=== PATIENT | female | born 1960 | race Caucasian/White ===

== ENCOUNTER 2020-04-12 06:24 | Emergency (ER) | payer OTHER ==
[2020-04-12] MEDS ORDERED: SODIUM CHLORIDE 0.9% 1,000 ML IV STA ×2 (06:48)
[2020-04-12] MEDS ORDERED: HYDROmorphone 1 MG/ML 1 ML SYRINGE IVP STA (06:48)
[2020-04-12] MEDS ORDERED: ONDANSETRON 4 MG/2 ML VIAL IVP STA (06:48)
[2020-04-12] MEDS ORDERED: PANTOPRAZOLE 40 MG/10 ML VIAL IVP STA (06:48)
--- NOTE | 2020-04-12 06:54 | ED ---
Abdominal Pain HPI - General Chief Complaint: Abdominal Pain Stated Complaint: Abd Pain Time Seen by Provider: 04/12/20 06:37 Source: patient, RN notes reviewed, old records reviewed Mode of arrival: ambulatory Limitations: no limitations - History of Present Illness Initial Comments: Patient is a 59-year-old female who presents emergency department today for evaluation for epigastric and left upper quadrant abdominal pain. She reports she's been having intermittent pain for the past 2 weeks which is been trying to manage for concerns for pancreatitis for the past 2 weeks by eating small amounts and taking her at home pain medication. She reports the pain seem to reoccur last night becoming more severe. She complains of nausea. She reports some loose stools. Patient states that she has had no fevers or chills. She is extensive history of pancreatitis and has had multiple stents placed at [facility]. Patient states that she's had no fevers or chills. - Related Data Previous Rx's Medication Instructions Recorded Sucralfate [Carafate] 1 gm PO ACHS #30 tablet 04/12/20 Allergies Allergy/AdvReac Type Severity Reaction Status Date / Time Iodinated Contrast Media Allergy Nausea & Verified 04/12/20 06:34 Vomiting codeine AdvReac Nausea & Verified 04/12/20 06:33 Vomiting Review of Systems ROS Statement: Those systems with pertinent positive or pertinent negative responses have been documented in the HPI. ROS Other: All systems not noted in ROS Statement are negative. Past Medical History Additional Past Medical History / Comment(s): pancreatitis, stent placed in pancreas then removed. History of Any Multi-Drug Resistant Organisms: None Reported Past Surgical History: Section, Cholecystectomy Past Psychological History: No Psychological Hx Reported Smoking Status: Current every day smoker Past Alcohol Use History: Occasional Past Drug Use History: None Reported General Exam - General Exam Comments Initial Comments: 59-year-old female. Alert and oriented. No distress. Limitations: no limitations General appearance: alert, in no apparent distress Head exam: Present: atraumatic Eye exam: Present: normal appearance, PERRL, EOMI. Absent: scleral icterus, conjunctival injection, periorbital swelling ENT exam: Present: normal exam, mucous membranes moist Neck exam: Present: normal inspection. Absent: tenderness, meningismus, lymphadenopathy Respiratory exam: Present: normal lung sounds bilaterally. Absent: respiratory distress, wheezes, rales, rhonchi, stridor Cardiovascular Exam: Present: regular rate, normal rhythm, normal heart sounds. Absent: systolic murmur, diastolic murmur, rubs, gallop, clicks GI/Abdominal exam: Present: soft, tenderness (Epigastric tenderness.), normal bowel sounds. Absent: distended, guarding, rebound, rigid Extremities exam: Present: normal inspection, full ROM, normal capillary refill. Absent: tenderness, pedal edema, joint swelling, calf tenderness Back exam: Present: normal inspection Neurological exam: Present: alert, oriented X3, CN II-XII intact Psychiatric exam: Present: normal affect, normal mood Skin exam: Present: warm, dry, intact, normal color. Absent: rash Course Vital Signs 04/12/20 06:28 Temperature 97.9 F Pulse Rate 75 Respiratory 18 Rate Blood Pressure 151/83 O2 Sat by Pulse 100 Oximetry - Reevaluation(s) Reevaluation #1: 04/12/20 08:46 Patient was reevaluated and resting comfortably in bed. She reports her pain is now diminished. Medical Decision Making - Medical Decision Making Patient's 59-year-old female presents weren't started today for upper abdominal pain, concern for recurrent pancreatitis. Patient is given IV fluids labwork obtained. Amylase and lipase are slightly elevated but no signs of severe pancreatitis at this time. Patient's CBC and CMP were otherwise unremarkable. Patient was given IV fluids and IV analgesics and is resting comfortably in bed. She does report the pain is otherwise worse after eating. Discussed concern for possible gastritis or duodenal ulcer. Patient does take Protonix daily. I discussed continue Protonix and will add Carafate to patient's regimen. Discussed dietary changes including coffee intake needs to decrease as well as to discontinue smoking. Patient understands treatment plan will comply. Return parameters were discussed. Discussed following up with her primary care physician as well as with as well as her specialist at [facility] for GI follow up. - Lab Data Result diagrams: 04/12/20 07:02 04/12/20 07:18 Lab Results 04/12/20 04/12/20 04/12/20 Range/Units 07:02 07:18 07:18 WBC 10.1 (3.8-10.6) k/uL RBC 4.77 (3.80-5.40) m/uL Hgb 13.3 (11.4-16.0) gm/dL Hct 39.8 (34.0-46.0) % MCV 83.4 (80.0-100.0) fL MCH 27.8 (25.0-35.0) pg MCHC 33.4 (31.0-37.0) g/dL RDW 14.4 (11.5-15.5) % Plt Count 333 (150-450) k/uL Neutrophils % 71 % Lymphocytes % 19 % Monocytes % 5 % Eosinophils % 3 % Basophils % 1 % Neutrophils # 7.2 (1.3-7.7) k/uL Lymphocytes # 1.9 (1.0-4.8) k/uL Monocytes # 0.5 (0-1.0) k/uL Eosinophils # 0.3 (0-0.7) k/uL Basophils # 0.1 (0-0.2) k/uL PT 9.7 (9.0-12.0) sec INR 0.9 (<1.2) APTT 23.7 (22.0-30.0) sec Sodium 139 (137-145) mmol/L Potassium 4.1 (3.5-5.1) mmol/L Chloride 108 H (98-107) mmol/L Carbon Dioxide 20 L (22-30) mmol/L Anion Gap 11 mmol/L BUN 11 (7-17) mg/dL Creatinine 0.58 (0.52-1.04) mg/dL Est GFR (CKD-EPI)AfAm >90 (>60 ml/min/1.73 sqM) Est GFR (CKD-EPI)NonAf >90 (>60 ml/min/1.73 sqM) Glucose 164 H (74-99) mg/dL Calcium 9.7 (8.4-10.2) mg/dL Magnesium 2.0 (1.6-2.3) mg/dL Total Bilirubin 0.3 (0.2-1.3) mg/dL AST 16 (14-36) U/L ALT 16 (4-34) U/L Alkaline Phosphatase 111 (38-126) U/L Total Protein 7.1 (6.3-8.2) g/dL Albumin 4.0 (3.5-5.0) g/dL Amylase 115 H (30-110) U/L Lipase 366 H (23-300) U/L 04/12/20 07:25 EKG shows normal sinus rhythm normal EKG. Ventricular rate of 67 bpm. Was 126 ms. She quaker is 86 ms. QT QTc is 404/426 most seconds. - Radiology Data Radiology results: report reviewed Chest x-ray is negative for any acute intra-abdominal abnormality. Disposition Clinical Impression: Upper abdominal pain, Gastritis Disposition: HOME SELF-CARE Condition: Good Instructions (If sedation given, give patient instructions): Abdominal Pain (ED), Diet for Stomach Ulcers and Gastritis (ED) Additional Instructions: Patient advised to monitor her diet and avoid any acidic foods and caffeine intake. Recommended appropriate follow-up with primary care physician and GI specialist at [facility]. Patient should increase fluid intake. Monitor for any other concerning signs or symptoms she can return for reevaluation. Prescriptions: Sucralfate [Carafate] 1 gm PO ACHS #30 tablet Is patient prescribed a controlled substance at d/c from ED?: No Referrals: Andrews Tomlinson DO [Primary Care Provider] - 1-2 days Time of Disposition: 08:50
[2020-04-12 07:41] LABS: ALT 16 U/L (4-34); AST 16 U/L (14-36); African American GFR (CKD) >90 (>60 ml/min/1.73 sqM); Alkaline Phosphatase 111 U/L (38-126); Amylase 115 U/L (30-110); Anion Gap 11 mmol/L; Blood Urea Nitrogen 11 mg/dL (7-17); Calcium 9.7 mg/dL (8.4-10.2); Carbon Dioxide 20 mmol/L (22-30); Chloride 108 mmol/L (98-107); Glucose 164 mg/dL (74-99); Non-African American GFR(CKD) >90 (>60 ml/min/1.73 sqM); Potassium 4.1 mmol/L (3.5-5.1); Sodium 139 mmol/L (137-145); Total Bilirubin 0.3 mg/dL (0.2-1.3); Total Protein 7.1 g/dL (6.3-8.2)
--- NOTE | 2020-04-12 07:46 | XR ---
EXAMINATION TYPE: XR KUB , 2 VIEWS DATE OF EXAM ORDERED: 04/12/2020 HISTORY: abdominal pain. COMPARISON: None. FINDINGS: The lung bases are clear. Within the abdomen, the abdominal gas pattern is normal. There is no evidence of obstruction or free air. No unusual calcifications are seen. The gallbladder has been removed. IMPRESSION: NO ACUTE INTRA-ABDOMINAL ABNORMALITY.
[2020-04-12 07:48] LABS: Basophils # (A) 0.1 k/uL (0-0.2); Basophils % (A) 1 %; Eosinophils # (A) 0.3 k/uL (0-0.7); Eosinophils % (A) 3 %; HCT 39.8 % (34.0-46.0); HGB 13.3 gm/dL (11.4-16.0); Lymphocytes # (A) 1.9 k/uL (1.0-4.8); Lymphocytes % (A) 19 %; MCH 27.8 pg (25.0-35.0); MCHC 33.4 g/dL (31.0-37.0); MCV 83.4 fL (80.0-100.0); Mean Platelet Volume 7.7; Monocytes # (A) 0.5 k/uL (0-1.0); Monocytes % (A) 5 %; Neutrophils # (A) 7.2 k/uL (1.3-7.7); Neutrophils % (A) 71 %; Platelet Count 333 k/uL (150-450); RBC 4.77 m/uL (3.80-5.40); RDW 14.4 % (11.5-15.5); WBC 10.1 k/uL (3.8-10.6)
[2020-04-12 07:54] LABS: INR 0.9 (<1.2); Partial Thromboplastin Time 23.7 sec (22.0-30.0); Prothrombin Time 9.7 sec (9.0-12.0)
[2020-04-12 09:15] VITALS: BP 106/74; PULSE 66; RESP 16; TEMP 98
[2020-04-12 09:50] LABS: Appearance,Urine Cloudy (Clear); Bacteria,Urine Occasional /hpf; Bilirubin,Urine Negative (Negative); Blood,Urine Trace (Negative); Color,Urine Yellow; Glucose,Urine (UA) Negative (Negative); Ketones,Urine Negative (Negative); Leukocyte Esterase,Urine Large (Negative); Mucus,Urine Few /hpf; Nitrite,Urine Negative (Negative); PH, Urine 5.5 (5.0-8.0); Protein,Urine Trace (Negative); RBC,Urine 2 /hpf (0-5); Specific Gravity,Urine 1.024 (1.001-1.035); Squamous Epithelial Cell,Urine 8 /hpf (0-4); Urobilinogen,Urine <2.0 mg/dL (<2.0); WBC,Urine 26 /hpf (0-5)
== END 2020-04-12 10:05 | disposition home or self-care (01) ==
LOC: EC 06:24
DX: K29.70 Gastritis, unspecified, without bleeding (principal); Z88.5 Allergy status to narcotic agent; Z91.041 Radiographic dye allergy status; F17.200 Nicotine dependence, unspecified, uncomplicated
CPT/HCPCS: 36415; 93005; 80053; 82150; 83690; 83735; 85025; 85610; 85730; 81001; 87086; 74018; 99284; 96374; 96375 ×2; 96361; J2405; J1170; C9113

== ENCOUNTER → 2021-03-04 | Outpatient (CLI) | payer BC ==
[2021-03-04 14:54] LABS: INR 0.9 (<1.2); Partial Thromboplastin Time 22.1 sec (22.0-30.0)
[2021-03-04 18:36] LABS: HCT 36.3 % (37.2-46.3); HGB 11.1 g/dL (12.0-15.0); MCH 24.7 pg (27.0-32.0); MCHC 30.6 g/dL (32.0-37.0); MCV 80.7 fL (80.0-97.0); Mean Platelet Volume 9.8 fL (9.5-12.2); Platelet Count 307 X 10*3/uL (140-440); RDW 14.6 % (11.5-14.5)
[2021-03-04 19:08] LABS: African American GFR (CKD) 92.9 (60.0-200.0); Albumin 4.8 g/dL (3.80-4.90); Albumin/Globulin Ratio 1.85 (1.60-3.17); Anion Gap 8.2 mmol/L (4.00-12.00); Calcium 10.2 mg/dL (8.7-10.3); Carbon Dioxide 24.8 mmol/L (21.6-31.8); Globulin 2.6 g/dL (1.6-3.3); Non-African American GFR(CKD) 80.1 (60.0-200.0); Potassium 4.6 mmol/L (3.5-5.5); Total Bilirubin 0.6 mg/dL (0.3-1.2); Total Protein 7.4 g/dL (6.2-8.2)
== END | disposition home or self-care (01) ==
LOC: LABWHC1 13:46
PROVIDERS: ATTEND Physician Assistant Medical
DX: Z01.812 Encounter for preprocedural laboratory examination (principal); K86.3 Pseudocyst of pancreas
CPT/HCPCS: 36415; 80053; 83036; 84134; 85027; 85610; 85730; 86850; 86900; 86901

== ENCOUNTER 2021-04-15 12:26 | Observation (INO) | payer BC ==
[2021-04-15] MEDS ORDERED: diphenhydrAMINE 50 MG/ML 1 ML VIAL IVP STA (12:41)
[2021-04-15] MEDS ORDERED: methylPREDNISolone SOD SUCCI 125 MG/2 ML VIAL IV STA (12:41)
[2021-04-15] MEDS ORDERED: FAMOTIDINE 20 MG/2 ML VIAL IV STA (12:41)
--- NOTE | 2021-04-15 12:42 | ED ---
General Adult HPI - General Chief complaint: Allergic Reaction Stated complaint: tongue swelling Time Seen by Provider: 04/15/21 12:36 Source: patient, RN notes reviewed Mode of arrival: ambulatory Limitations: no limitations - History of Present Illness Initial comments: Patient is a pleasant 60-year-old female presenting to the emergency department with complaints of tongue swelling. Onset of symptoms was around 9 or 10 this morning. Symptoms did start shortly after taking her diabetes medication that he she is only been on for a few days. Patient is also on lisinopril however she has been on that for many months now. Patient also has some mild swelling of the back of her throat. No dyspnea. Patient does not feel wheezy or tightness in her chest. No facial swelling. No history of similar symptoms previously. No other new known exposures. - Related Data Home Medications Medication Instructions Recorded Confirmed Aspirin EC [Ecotrin Low Dose] 81 mg PO DAILY 04/15/21 04/15/21 Docusate [Colace] 100 mg PO DAILY 04/15/21 04/15/21 Empagliflozin [Jardiance] 25 mg PO DAILY 04/15/21 04/15/21 Lipase/Protease/Amylase [Creon Dr 36,000 units PO QID 04/15/21 04/15/21 36,000 Units Capsule] Metoprolol Tartrate [Lopressor] 25 mg PO BID 04/15/21 04/15/21 Pantoprazole Sodium [Protonix] 40 mg PO DAILY 04/15/21 04/15/21 Repaglinide [Prandin] 1 mg PO AC-BID 04/15/21 04/15/21 Rosuvastatin Calcium [Crestor] 40 mg PO HS 04/15/21 04/15/21 Ticagrelor [Brilinta] 90 mg PO BID 04/15/21 04/15/21 diphenhydrAMINE [Benadryl] 50 mg PO ONCE PRN 04/15/21 04/15/21 lisinopriL [Zestril] 5 mg PO DAILY 04/15/21 04/15/21 sitaGLIPtin [Januvia] 100 mg PO HS 04/15/21 04/15/21 Allergies Allergy/AdvReac Type Severity Reaction Status Date / Time Iodinated Contrast Media Allergy Nausea & Verified 04/15/21 13:24 Vomiting Sulfa (Sulfonamide Allergy Rash/Hives Verified 04/15/21 13:24 Antibiotics) codeine AdvReac Nausea & Verified 04/15/21 13:24 Vomiting Review of Systems ROS Statement: Those systems with pertinent positive or pertinent negative responses have been documented in the HPI. ROS Other: All systems not noted in ROS Statement are negative. Constitutional: Denies: fever Eyes: Denies: eye pain ENT: Reports: as per HPI. Denies: ear pain Respiratory: Denies: cough, dyspnea Cardiovascular: Denies: chest pain Endocrine: Denies: fatigue Gastrointestinal: Denies: abdominal pain Genitourinary: Denies: dysuria Musculoskeletal: Denies: back pain Skin: Denies: lesions Neurological: Denies: headache Past Medical History Past Medical History: Diabetes Mellitus, Hypertension Additional Past Medical History / Comment(s): pancreatitis, stent placed in pancreas then removed. History of Any Multi-Drug Resistant Organisms: None Reported Past Surgical History: Section, Cholecystectomy Past Psychological History: No Psychological Hx Reported Smoking Status: Never smoker Past Alcohol Use History: Occasional Past Drug Use History: None Reported General Exam Limitations: no limitations General appearance: alert, in no apparent distress Head exam: Present: normocephalic Eye exam: Present: normal appearance ENT exam: Present: other (Angioedema, mild to moderate of the tongue. Minimal angioedema of the uvula.) Neck exam: Present: normal inspection Respiratory exam: Present: normal lung sounds bilaterally. Absent: respiratory distress, wheezes Cardiovascular Exam: Present: regular rate, normal rhythm GI/Abdominal exam: Present: soft. Absent: tenderness Extremities exam: Present: normal inspection. Absent: pedal edema, calf tenderness Neurological exam: Present: alert Psychiatric exam: Present: normal affect, normal mood Skin exam: Present: normal color Course Vital Signs 04/15/21 04/15/21 12:28 13:36 Temperature 97.5 F L Pulse Rate 90 84 Respiratory 20 18 Rate Blood Pressure 141/58 127/66 O2 Sat by Pulse 99 98 Oximetry Medical Decision Making - Medical Decision Making Patient reevaluated and unchanged. Patient and family updated. Case discussed with Dr. Mtz, covering hospital call, who will admit. Disposition Clinical Impression: Angioedema Disposition: ADMITTED IP TO THIS HOSP Is patient prescribed a controlled substance at d/c from ED?: No Referrals: Andrews Tomlinson DO [Primary Care Provider] - 1-2 days Decision Time: 14:19
[2021-04-15] MEDS ORDERED: NALOXONE 0.4 MG/ML 1 ML VIAL IV PRN (14:20)
[2021-04-15] MEDS ORDERED: SODIUM CHLORIDE 0.9% 1,000 ML IV SCH (14:30)
[2021-04-15] MEDS: HEPARIN SODIUM,PORCINE/PF 5,000 UNIT/0.5 ML SYRINGE SQ SCH ×2 (16:40→21:01)
[2021-04-15 16:57] LABS: Glucose,Whole Blood 189 mg/dL (75-99)
[2021-04-15] MEDS: LIPASE 5,000/PROTEASE 17,000/AMYLASE 24,000 PO SCH ×2 (17:22→20:42)
[2021-04-15] MEDS: REPAGLINIDE 1 MG TAB PO SCH (17:24)
[2021-04-15] MEDS: diphenhydrAMINE 50 MG/ML 1 ML VIAL IVP PRN ×2 (17:25→22:59)
[2021-04-15] MEDS: methylPREDNISolone SOD SUCCI 125 MG/2 ML VIAL IV SCH ×2 (17:25→23:13)
[2021-04-15 20:17] LABS: Glucose,Whole Blood 336 mg/dL (75-99)
--- NOTE | 2021-04-15 20:37 | P.HPIM ---
History of Present Illness H&P Date: 04/15/21 Patient is a 60-year-old female with a long history of hypertension, diabetes type 2 [id number], history of NE in August 2020 with stent placement, CAD,, pancreatic tumor resection on March 23, 2021 presents to ER with complaints of tongue swelling. Patient states that she had breakfast in the morning and took all her medications. She suddenly started having tongue swelling and fullness in the throat. Denied any lip swelling. No complaints of shortness of breath or chest pain. Also had swelling of the back of her throat. Patient presented to ER due to worsening symptoms. No facial swelling or rash. Patient has been taking lisinopril since August 2020 and also recently started new diabetic medication, empagliflozin. Laboratory data showed blood sugar 189 and 336. Patient was given a dose of Benadryl, methylprednisolone and IV Pepcid in the ER. Review of Systems Constitutional: Patient denies any fever or chills . No generalized weakness or weight loss. Abdomen: Patient denied nausea vomiting and diarrhea and abdominal pain. Cardiovascular: Patient denies any chest pain or short of breath no palpitations. Respiratory: patient denied any cough is from production. No shortness of breath Neurologic: Patient denied any numbness or tingling headache. tongue swelling Musculoskeletal: Patient denies any complaints of joint swelling or deformity. Skin: Negative Psychiatric: Negative Endocrine: No heat or cold intolerance. No recent weight gain. Genitourinary: No dysuria or hematuria. All other 14 point ROS negative except the above Past Medical History Past Medical History: Diabetes Mellitus, Hypertension Additional Past Medical History / Comment(s): pancreatitis, stent placed in pancreas then removed. History of Any Multi-Drug Resistant Organisms: None Reported Past Surgical History: Section, Cholecystectomy Past Psychological History: No Psychological Hx Reported Smoking Status: Never smoker Past Alcohol Use History: Occasional Past Drug Use History: None Reported Medications and Allergies Home Medications Medication Instructions Recorded Confirmed Type Aspirin EC [Ecotrin Low Dose] 81 mg PO DAILY 04/15/21 04/15/21 History Docusate [Colace] 100 mg PO DAILY 04/15/21 04/15/21 History Empagliflozin [Jardiance] 25 mg PO DAILY 04/15/21 04/15/21 History Lipase/Protease/Amylase [Royce Jaffe 36,000 units PO QID 04/15/21 04/15/21 History 36,000 Units Capsule] Metoprolol Tartrate [Lopressor] 25 mg PO BID 04/15/21 04/15/21 History Pantoprazole Sodium [Protonix] 40 mg PO DAILY 04/15/21 04/15/21 History Repaglinide [Prandin] 1 mg PO AC-BID 04/15/21 04/15/21 History Rosuvastatin Calcium [Crestor] 40 mg PO HS 04/15/21 04/15/21 History Ticagrelor [Brilinta] 90 mg PO BID 04/15/21 04/15/21 History diphenhydrAMINE [Benadryl] 50 mg PO ONCE PRN 04/15/21 04/15/21 History lisinopriL [Zestril] 5 mg PO DAILY 04/15/21 04/15/21 History sitaGLIPtin [Januvia] 100 mg PO HS 04/15/21 04/15/21 History Allergies Allergy/AdvReac Type Severity Reaction Status Date / Time Iodinated Contrast Media Allergy Nausea & Verified 04/15/21 13:24 Vomiting Sulfa (Sulfonamide Allergy Rash/Hives Verified 04/15/21 13:24 Antibiotics) codeine AdvReac Nausea & Verified 04/15/21 13:24 Vomiting Physical Exam Vitals: Vital Signs Temp Pulse Resp BP Pulse Ox 04/15/21 16:18 90 18 126/78 98 04/15/21 14:38 90 16 123/88 94 L 04/15/21 13:36 84 18 127/66 98 04/15/21 12:28 97.5 F L 90 20 141/58 99 Intake and Output 04/15/21 04/15/21 04/15/21 06:59 14:59 22:59 Other: Weight 79.379 kg PHYSICAL EXAMINATION: Patient is lying in the bed comfortably, no acute distress, awake alert and oriented.. HEENT: Normocephalic. Neck is supple. Pupils reactive. Nostrils clear. Oral cavity is moist. Patient does swelling and redness of the tongue. Especially on the sides. No pharyngeal erythema. Neck reveals no JVD, carotid bruits, or thyromegaly. CHEST EXAMINATION: Trachea is central. Symmetrical expansion. Lung anderson clear to auscultation and percussion. CARDIAC: Normal S1, S2 with no gallops. No murmurs ABDOMEN: Soft. Bowel sounds normal. No organomegaly. No abdominal bruits. Extremities: reveal no edema. No clubbing or cyanosis Neurologically awake, alert, oriented x3 with well-coordinated movements. No focal deficits noted Skin: No rash or skin lesions. Psychiatric: Coperative. Nonsuicidal Musculoskeletal: No joint swelling or deformity. Normal range of motion. Thrombosis Risk Factor Assmnt - DVT/VTE Prophylaxis DVT/VTE Prophylaxis: Pharmacologic Prophylaxis ordered Assessment and Plan Assessment: Acute allergic reaction with tongue swelling. Patient is lisinopril and recent change in diabetic medications. Hyperglycemia with uncontrolled diabetes type 2 Recent pancreatic stent placement on March 23, 2021 History of NE Coronary artery disease with history of stent placement in August 2020 History of pancreatitis DVT prophylaxis with heparin subcu Plan: Patient will be continued IV methylprednisolone, IV Pepcid and Benadryl as needed for allergic symptoms. Continue to monitor closely for any respiratory distress. Continue with home medication including aspirin, Brilinta and statins and metoprolol. Follow-up closely. Continue with home diabetic medications along with insulin sliding scale and titrate dose as needed. Follow-up A1c level. Time with Patient: Greater than 30
[2021-04-15] MEDS: METOPROLOL TARTRATE 25 MG TAB PO SCH (20:38)
[2021-04-15] MEDS: FAMOTIDINE 20 MG/2 ML VIAL IV SCH (20:39)
[2021-04-15] MEDS: INSULIN ASPART (NovoLOG) 100 UNIT/ML VIAL SQ SCH (20:50)
[2021-04-15] MEDS: TICAGRELOR 90 MG TAB PO SCH (20:54)
[2021-04-15] MEDS ORDERED: ATORVASTATIN 80 MG TAB PO SCH (21:00)
[2021-04-15] MEDS ORDERED: LINAGLIPTIN 5 MG TABLET PO SCH (21:00)
[2021-04-15 21:30] LABS: Basophils % (A) 0 %; Eosinophils % (A) 0 %; HCT 31.4 % (34.0-46.0); HGB 9.4 gm/dL (11.4-16.0); Hypochromasia Marked; Lymphocytes # (A) 0.8 k/uL (1.0-4.8); Lymphocytes % (A) 9 %; MCH 23.1 pg (25.0-35.0); MCHC 30.1 g/dL (31.0-37.0); MCV 76.9 fL (80.0-100.0); Mean Platelet Volume 6.6; Microcytosis Slight; Monocytes # (A) 0.1 k/uL (0-1.0); Monocytes % (A) 1 %; Neutrophils # (A) 8.1 k/uL (1.3-7.7); Neutrophils % (A) 90 %; Platelet Count 464 k/uL (150-450); Poikilocytosis Slight; RBC 4.08 m/uL (3.80-5.40); RDW 15.2 % (11.5-15.5); WBC 8.9 k/uL (3.8-10.6)
[2021-04-15 21:48] LABS: African American GFR (CKD) >90 (>60 ml/min/1.73 sqM); Anion Gap 17 mmol/L; Blood Urea Nitrogen 23 mg/dL (7-17); Calcium 10.6 mg/dL (8.4-10.2); Carbon Dioxide 18 mmol/L (22-30); Chloride 103 mmol/L (98-107); Glucose 316 mg/dL (74-99); Non-African American GFR(CKD) 87 (>60 ml/min/1.73 sqM); Potassium 4.6 mmol/L (3.5-5.1); Sodium 138 mmol/L (137-145)
[2021-04-15] MEDS ORDERED: guaiFENesin 600 MG TABLET.ER PO PRN (23:39)
[2021-04-16] MEDS: methylPREDNISolone SOD SUCCI 125 MG/2 ML VIAL IV SCH ×2 (05:08→12:28)
[2021-04-16 05:37] LABS: Hemoglobin A1C 6.3 % (4.0-6.0)
[2021-04-16 07:13] LABS: Glucose,Whole Blood 208 mg/dL (75-99)
[2021-04-16 07:36] VITALS: PULSE 91
[2021-04-16] MEDS: HEPARIN SODIUM,PORCINE/PF 5,000 UNIT/0.5 ML SYRINGE SQ SCH (08:01)
[2021-04-16] MEDS: REPAGLINIDE 1 MG TAB PO SCH (08:01)
[2021-04-16] MEDS: FAMOTIDINE 20 MG/2 ML VIAL IV SCH (08:02)
[2021-04-16] MEDS: METOPROLOL TARTRATE 25 MG TAB PO SCH (08:02)
[2021-04-16] MEDS: TICAGRELOR 90 MG TAB PO SCH (08:03)
[2021-04-16] MEDS: LIPASE 5,000/PROTEASE 17,000/AMYLASE 24,000 PO SCH ×2 (08:04→12:28)
[2021-04-16] MEDS: INSULIN ASPART (NovoLOG) 100 UNIT/ML VIAL SQ SCH ×2 (08:04→12:28)
[2021-04-16] MEDS ORDERED: DOCUSATE 100 MG CAP PO SCH (09:00)
[2021-04-16] MEDS ORDERED: PANTOPRAZOLE 40 MG TABLET PO SCH (09:00)
[2021-04-16] MEDS ORDERED: ASPIRIN 81 MG PO SCH (09:00)
[2021-04-16] MEDS ORDERED: Empagliflozin [Jardiance] PO SCH (09:30)
[2021-04-16 12:08] LABS: Glucose,Whole Blood 238 mg/dL (75-99)
[2021-04-16 14:41] VITALS: BP 132/78; RESP 17; TEMP 97.4
[2021-04-16] MEDS ORDERED: FAMOTIDINE 20 MG TAB PO SCH (21:00)
[2021-04-16] MEDS ORDERED: NON FORMULARY DRUG (Empagliflozin [Jardiance] 25 MG) PO SCH (21:00)
--- NOTE | 2021-04-19 09:47 | P.DS ---
Providers Date of admission: 04/15/21 14:20 Expected date of discharge: 04/16/21 Attending physician: Carmencita Mtz Primary care physician: Andrews Tomlinson [facility] Course: Final Diagnosis Acute allergic reaction with tongue swelling possibly secondary to lisinopril or recent Prandin Hyperglycemia with uncontrolled diabetes type 2 Recent pancreatic stent placement on March 23, 2021 History of LA Coronary artery disease with history of stent placement in August 2020 History of pancreatitis DVT prophylaxis Discharge disposition Patient is being discharged in a stable condition with guarded prognosis to home. Patient will follow-up with Dr. Andrews Tomlinson in the outpatient setting upon discharge. Patient is to follow up with endocrine Dr. Maddox as scheduled. Total time taken is greater than 35 minutes. Hospital course Patient is a 60-year-old female with a long history of hypertension, diabetes type 2 [id number], history of LA in August 2020 with stent placement, CAD,, pancreatic tumor resection on March 23, 2021 presents to ER with complaints of tongue swelling. Patient states that she had breakfast in the morning and took all her medications. She suddenly started having tongue swelling and fullness in the throat. Denied any lip swelling. No complaints of shortness of breath or chest pain. Also had swelling of the back of her throat. Patient presented to ER due to worsening symptoms. No facial swelling or rash. Patient has been taking lisinopril since August 2020 and also recently started new diabetic medication, empagliflozin. Laboratory data showed blood sugar 189 and 336. Patient was given a dose of Benadryl, methylprednisolone and IV Pepcid in the ER. 04/16/2021 Patient is seen in follow-up this morning with no acute overnight issues. Patient has some minimal tongue swelling although states much improved and denies any difficulty in swallowing difficulty in breathing or throat swelling. Patient has been off of lisinopril and instructed to continue to hold along with Prandin which was recently started this week. Will continue on Januvia and Jardiance and instructed to follow-up closely with endocrine and her surgeon as she recently just had pancreatic tumor resection. Patient does have Benadryl at home along with Pepcid and will continue. Patient will be given a prescription for an EpiPen along with a very short prednisone taper and again instructed to continue to hold lisinopril and Prandin. Currently no reports of chest pain, shortness of breath, or palpitations. Patient is afebrile. No reports of nausea or vomiting and patient is tolerating diet. Patient will be discharged home today. On exam vital signs are stable. Cardio S1, S2 are muffled. Respiratory system shows diminished breath sounds at the bases with no wheezing or rhonchi noted. Abdomen is soft and nontender. Nervous system shows no focal deficits. Please refer to medication reconciliation sheet for a list of medications. Patient Condition at Discharge: Stable Plan - Discharge Summary Discharge Rx Participant: No New Discharge Prescriptions: New predniSONE 10 mg PO DIRECTED 6 Days #6 tab Famotidine [Pepcid] 20 mg PO BID #60 tab Continue diphenhydrAMINE [Benadryl] 50 mg PO ONCE PRN PRN Reason: Allergic Reaction Rosuvastatin Calcium [Crestor] 40 mg PO HS Lipase/Protease/Amylase [Royce Jaffe 36,000 Units Capsule] 36,000 units PO QID Docusate [Colace] 100 mg PO DAILY Aspirin EC [Ecotrin Low Dose] 81 mg PO DAILY Pantoprazole Sodium [Protonix] 40 mg PO DAILY Empagliflozin [Jardiance] 25 mg PO DAILY Metoprolol Tartrate [Lopressor] 25 mg PO BID sitaGLIPtin [Januvia] 100 mg PO HS Ticagrelor [Brilinta] 90 mg PO BID Discontinued Repaglinide [Prandin] 1 mg PO AC-BID lisinopriL [Zestril] 5 mg PO DAILY Discharge Medication List Aspirin EC [Ecotrin Low Dose] 81 mg PO DAILY 04/15/21 [History] Docusate [Colace] 100 mg PO DAILY 04/15/21 [History] Empagliflozin [Jardiance] 25 mg PO DAILY 04/15/21 [History] Lipase/Protease/Amylase [Royce Jaffe 36,000 Units Capsule] 36,000 units PO QID 04/15/21 [History] Metoprolol Tartrate [Lopressor] 25 mg PO BID 04/15/21 [History] Pantoprazole Sodium [Protonix] 40 mg PO DAILY 04/15/21 [History] Rosuvastatin Calcium [Crestor] 40 mg PO HS 04/15/21 [History] Ticagrelor [Brilinta] 90 mg PO BID 04/15/21 [History] diphenhydrAMINE [Benadryl] 50 mg PO ONCE PRN 04/15/21 [History] sitaGLIPtin [Januvia] 100 mg PO HS 04/15/21 [History] Famotidine [Pepcid] 20 mg PO BID #60 tab 04/16/21 [Rx] predniSONE 10 mg PO DIRECTED 6 Days #6 tab 04/16/21 [Rx] Follow up Appointment(s)/Referral(s): Abner Maddox MD [REFERRING] - 1 Week Andrews Tomlinson DO [Primary Care Provider] - 1-2 days Activity/Diet/Wound Care/Special Instructions: Activity Limited until follow-up Follow-up with primary care provider upon discharge folLow up with surgery after scheduled appointment Follow-up endocrine outpatient continue to monitor blood sugars closely and keep a diary for primary care follow-up Continue to hold lisinopril until follow-up with primary care provider Monitor Your blood pressures and keep a diary for primary care follow-up Continue to hold Prandin (repaglinide) Continue to follow a consistent carb heart healthy diet Discharge Disposition: HOME SELF-CARE
== END 2021-04-16 15:46 | disposition home or self-care (01) ==
LOC: EC 12:26 → 6NMEDSUR 14:20
PROVIDERS: ADMIT Internal Medicine; ATTEND Internal Medicine
DX: T78.3XXA Angioneurotic edema, initial encounter (principal); E11.65 Type 2 diabetes mellitus with hyperglycemia; I25.2 Old myocardial infarction; I25.10 Atherosclerotic heart disease of native coronary artery without angina pectoris; I10 Essential (primary) hypertension; D49.0 Neoplasm of unspecified behavior of digestive system; Z79.899 Other long term (current) drug therapy; Z79.84 Long term (current) use of oral hypoglycemic drugs; Z79.82 Long term (current) use of aspirin; Z79.02 Long term (current) use of antithrombotics/antiplatelets; Z91.041 Radiographic dye allergy status; Z88.2 Allergy status to sulfonamides; Z88.5 Allergy status to narcotic agent; Z95.5 Presence of coronary angioplasty implant and graft; Z90.49 Acquired absence of other specified parts of digestive tract; Z98.891 History of uterine scar from previous surgery
CPT/HCPCS: 96376 ×2; 96375; 96374; 99285; 80048; 85025; 83036; G0378 ×2; J1200; J2930 ×2

== ENCOUNTER 2022-05-03 23:37 | Emergency (ER) | payer BC ==
[2022-05-03 23:42] VITALS: TEMP 97.8
--- NOTE | 2022-05-04 | ED ---
Chest Pain HPI - General Chief Complaint: Back Pain/Injury Stated Complaint: Chest Pain Time Seen by Provider: 05/03/22 23:58 Source: patient, RN notes reviewed, old records reviewed Mode of arrival: ambulatory Limitations: no limitations - History of Present Illness Initial Comments: This is a 61-year-old female to the emergency department for evaluation patient presents today for evaluation of abdominal pain back pain chest pain. Patient is a concern for having heart attack and she has prior history of ACS. She is also concerned which she states for the GI which does cause her significant severe symptoms. No shortness of breath no other complaints patient is very anxious on arrival MD Complaint: chest pain -: hour(s) Onset: during rest Pain Location: substernal, epigastric Pain Radiation: back Severity: severe Severity scale (1-10): 10 Quality: tightness Consistency: constant Improves With: nothing Worsens With: nothing Anginal Symptoms: dyspnea Other Symptoms: cough Treatments Prior to Arrival: none - Related Data On Oral Contraceptives: No Home Medications Medication Instructions Recorded Confirmed Aspirin EC [Ecotrin Low Dose] 81 mg PO DAILY 04/15/21 04/15/21 Docusate [Colace] 100 mg PO DAILY 04/15/21 04/15/21 Empagliflozin [Jardiance] 25 mg PO DAILY 04/15/21 04/15/21 Lipase/Protease/Amylase [Creon Dr 36,000 units PO QID 04/15/21 04/15/21 36,000 Unit Capsule] Metoprolol Tartrate [Lopressor] 25 mg PO BID 04/15/21 04/15/21 Pantoprazole Sodium [Protonix] 40 mg PO DAILY 04/15/21 04/15/21 Rosuvastatin Calcium [Crestor] 40 mg PO HS 04/15/21 04/15/21 Ticagrelor [Brilinta] 90 mg PO BID 04/15/21 04/15/21 diphenhydrAMINE [Benadryl] 50 mg PO ONCE PRN 04/15/21 04/15/21 sitaGLIPtin [Januvia] 100 mg PO HS 04/15/21 04/15/21 Previous Rx's Medication Instructions Recorded Famotidine [Pepcid] 20 mg PO BID #60 tab 04/16/21 predniSONE 10 mg PO DIRECTED 6 Days #6 tab 04/16/21 EPINEPHrine (Auto Inject) [Epipen] 0.3 mg IM ONCE PRN #1 pen 04/19/21 Ciprofloxacin HCl [Cipro] 500 mg PO Q12HR #14 tablet 05/04/22 Allergies Allergy/AdvReac Type Severity Reaction Status Date / Time Iodinated Contrast Media Allergy Nausea & Verified 05/03/22 23:39 Vomiting Sulfa (Sulfonamide Allergy Rash/Hives Verified 05/03/22 23:39 Antibiotics) codeine AdvReac Nausea & Verified 05/03/22 23:39 Vomiting Review of Systems ROS Statement: Those systems with pertinent positive or pertinent negative responses have been documented in the HPI. ROS Other: All systems not noted in ROS Statement are negative. EKG Findings - EKG Comments: EKG Findings:: EKG shows sinus rhythm 74 WA 137 QRS 97 QTC 386 Past Medical History Past Medical History: Diabetes Mellitus, Hypertension, Myocardial Infarction ([place]) Additional Past Medical History / Comment(s): pancreatitis, stent placed in pancreas then removed. Last Myocardial Infarction Date:: History of Any Multi-Drug Resistant Organisms: None Reported Past Surgical History: Section, Cholecystectomy, Heart Catheterization With Stent Additional Past Surgical History / Comment(s): Half of pancreas removed 03.23.21, CLINT placed on left side Past Anesthesia/Blood Transfusion Reactions: No Reported Reaction Past Psychological History: No Psychological Hx Reported Smoking Status: Never smoker Past Alcohol Use History: Occasional Past Drug Use History: None Reported General Exam Limitations: no limitations General appearance: alert, in no apparent distress Head exam: Present: atraumatic, normocephalic, normal inspection Eye exam: Present: normal appearance, PERRL, EOMI. Absent: scleral icterus, conjunctival injection, periorbital swelling ENT exam: Present: normal exam, mucous membranes moist Neck exam: Present: normal inspection. Absent: tenderness, meningismus, lymphadenopathy Respiratory exam: Present: normal lung sounds bilaterally. Absent: respiratory distress, wheezes, rales, rhonchi, stridor Cardiovascular Exam: Present: regular rate, normal rhythm, normal heart sounds. Absent: systolic murmur, diastolic murmur, rubs, gallop, clicks GI/Abdominal exam: Present: soft, normal bowel sounds. Absent: distended, tenderness, guarding, rebound, rigid Extremities exam: Present: normal inspection, full ROM, normal capillary refill. Absent: tenderness, pedal edema, joint swelling, calf tenderness Back exam: Present: normal inspection Neurological exam: Present: alert, oriented X3, CN II-XII intact Psychiatric exam: Present: normal affect, normal mood Skin exam: Present: warm, dry, intact, normal color. Absent: rash Course Vital Signs 05/03/22 05/04/22 23:40 03:33 Temperature 97.8 F Pulse Rate 91 65 Respiratory 16 16 Rate Blood Pressure 129/66 100/63 O2 Sat by Pulse 98 95 Oximetry - Reevaluation(s) Reevaluation #1: 05/04/22 Medical record is reviewed Reevaluation #2: 05/04/22 Patient symptoms are improved Reevaluation #3: 05/04/22 Patient informed of results and questions answered Chest Pain MDM - MDM 61 Female with severe chest pain history of ACS, severe back pain abdominal pain history of UTI found of urinary tract infection as cause of symptoms today patient can be discharged home Disposition Clinical Impression: Mid back pain, UTI (urinary tract infection) Disposition: HOME SELF-CARE Condition: Good Instructions (If sedation given, give patient instructions): Urinary Tract Infection in Women (ED), Acute Low Back Pain (ED) Prescriptions: Ciprofloxacin HCl [Cipro] 500 mg PO Q12HR #14 tablet Is patient prescribed a controlled substance at d/c from ED?: No Referrals: Andrews Tomlinson DO [Primary Care Provider] - 1-2 days Time of Disposition: 03:20
--- NOTE | 2022-05-04 00:55 | XR ---
EXAMINATION TYPE: XR chest 1V portable DATE OF EXAM: 05/04/2022 COMPARISON: NONE HISTORY: Chest pain TECHNIQUE: Single view FINDINGS: There is no heart failure nor confluent pneumonic infiltrate. Costophrenic angles are clear . There are no hilar masses. The bony thorax appears intact. IMPRESSION: No active cardiopulmonary disease.
[2022-05-04 00:58] LABS: Anisocytosis Slight; Basophils % (A) 1 %; Eosinophils # (A) 0.1 k/uL (0-0.7); Eosinophils % (A) 1 %; HCT 34.3 % (34.0-46.0); HGB 10.4 gm/dL (11.4-16.0); Hypochromasia Marked; Lymphocytes # (A) 1.6 k/uL (1.0-4.8); Lymphocytes % (A) 19 %; MCHC 30.3 g/dL (31.0-37.0); MCV 72.7 fL (80.0-100.0); Mean Platelet Volume 7.5; Microcytosis Moderate; Monocytes # (A) 0.6 k/uL (0-1.0); Monocytes % (A) 6 %; Neutrophils # (A) 6.2 k/uL (1.3-7.7); Neutrophils % (A) 71 %; Platelet Count 262 k/uL (150-450); RBC 4.72 m/uL (3.80-5.40); RDW 16.6 % (11.5-15.5); WBC 8.7 k/uL (3.8-10.6)
[2022-05-04 01:05] VITALS: RESP 16
[2022-05-04 01:11] LABS: Albumin 4.2 g/dL (3.5-5.0); Calcium 9.7 mg/dL (8.4-10.2); Magnesium 1.8 mg/dL (1.6-2.3); Phosphorus 3.7 mg/dL (2.5-4.5); Total Bilirubin 0.4 mg/dL (0.2-1.3); Total Protein 7.1 g/dL (6.3-8.2)
[2022-05-04 01:15] LABS: INR 0.9 (<1.2); Prothrombin Time 10.1 sec (9.0-12.0)
[2022-05-04] MEDS ORDERED: HYDROmorphone 1 MG/ML 1 ML SYRINGE IVP STA (01:38)
[2022-05-04] MEDS ORDERED: MORPHINE SULFATE 4 MG/ML SYRINGE IVP STA (01:38)
[2022-05-04 03:18] LABS: Amorphous Sediment,Urine Rare /hpf; Appearance,Urine Cloudy (Clear); Bacteria,Urine Rare /hpf; Bilirubin,Urine Negative (Negative); Blood,Urine Negative (Negative); Calcium Oxalate Crystals,Urine Rare /hpf; Color,Urine Yellow; Glucose,Urine (UA) 4+ (Negative); Hyaline Casts,Urine 7 /lpf (0-2); Ketones,Urine Trace (Negative); Leukocyte Esterase,Urine Large (Negative); Mucus,Urine Rare /hpf; Nitrite,Urine Negative (Negative); Protein,Urine Trace (Negative); RBC,Urine 1 /hpf (0-5); Specific Gravity,Urine 1.031 (1.001-1.035); Squamous Epithelial Cell,Urine 4 /hpf (0-4); Urobilinogen,Urine <2.0 mg/dL (<2.0); WBC,Urine 85 /hpf (0-5)
[2022-05-04] MEDS ORDERED: cefTRIAXone IN SWFI 1,000 MG/10 ML SYRINGE IVP STA (03:24)
[2022-05-04 03:33] VITALS: BP 100/63; PULSE 65
== END 2022-05-04 03:36 | disposition home or self-care (01) ==
LOC: EC 23:37
DX: M54.6 Pain in thoracic spine (principal); N39.0 Urinary tract infection, site not specified; E11.9 Type 2 diabetes mellitus without complications; I21.9 Acute myocardial infarction, unspecified; I10 Essential (primary) hypertension; Z88.2 Allergy status to sulfonamides; Z91.041 Radiographic dye allergy status; Z88.5 Allergy status to narcotic agent; Z79.82 Long term (current) use of aspirin; Z79.899 Other long term (current) drug therapy
CPT/HCPCS: 36415; 93005; 83880; 80053; 83735; 84100; 84484; 85025; 85610; 85730; 81001; 71045; 99285; 96374; 96375; J2270; J0696

== ENCOUNTER 2024-04-20 10:21 | Observation (INO) | payer BC, MEDICARE ==
[2024-04-20 10:46] LABS: Basophils % (A) 1 %; Eosinophils # (A) 0.1 k/uL (0-0.7); Eosinophils % (A) 2 %; HGB 13.2 gm/dL (11.4-16.0); Lymphocytes # (A) 1.5 k/uL (1.0-4.8); Lymphocytes % (A) 24 %; MCH 26.7 pg (25.0-35.0); MCHC 32.2 g/dL (31.0-37.0); MCV 82.8 fL (80.0-100.0); Mean Platelet Volume 7.7; Monocytes # (A) 0.5 k/uL (0-1.0); Monocytes % (A) 7 %; Neutrophils # (A) 3.9 k/uL (1.3-7.7); Neutrophils % (A) 62 %; Platelet Count 225 k/uL (150-450); RBC 4.95 m/uL (3.80-5.40); RDW 15.4 % (11.5-15.5); WBC 6.3 k/uL (3.8-10.6)
[2024-04-20 11:01] LABS: INR 0.9 (<1.2); Partial Thromboplastin Time 24.3 sec (22.0-30.0); Prothrombin Time 9.8 sec (10.0-12.5)
--- NOTE | 2024-04-20 11:04 | ED ---
Chest Pain HPI - General Source: patient, family, RN notes reviewed Mode of arrival: ambulatory Limitations: no limitations <Gavi Delgado - Last Filed: 04/20/24 11:02> <Orlando Franklin - Last Filed: 04/20/24 12:03> - General Chief Complaint: Chest Pain Stated Complaint: Chest Pain Time Seen by Provider: 04/20/24 11:02 - History of Present Illness Initial Comments: Quick Note: This is a 63-year-old female who presents to the emergency department for chest pain. States that it is in the center of her chest and she has sensation down her left arm and jaw as well. Pain started about an hour prior to arrival. Reports a heart attack in 2019, at which time she required a stent. States that the pain feels similar to that time. Last saw cardiology in September when she was in [place]. Not currently taking blood thinners. (Gavi Delgado) This is a 63-year-old female with past medical history significant for diabetes and high cholesterol and a previous heart attack with a stent. Patient states she had previous heart attack in 2019. Patient states today she has the same symptoms she had when she had a heart attack. Patient complains of chest pain some pain rating down the arm and into the jaw and into her left ear. Patient states the pain is a little better now but it still there. Patient denies any difficulty breathing she denies any diaphoretic episode she denies any nausea. Patient Nuys any abdominal pain patient denies any back pain. (Orlando Franklin) - Related Data Home Medications Medication Instructions Recorded Confirmed Aspirin EC [Ecotrin Low Dose] 81 mg PO DAILY 04/15/21 04/15/21 Docusate [Colace] 100 mg PO DAILY 04/15/21 04/15/21 Empagliflozin [Jardiance] 25 mg PO DAILY 04/15/21 04/15/21 Lipase/Protease/Amylase [Royce Jaffe 36,000 units PO QID 04/15/21 04/15/21 36,000 Unit Capsule] Metoprolol Tartrate [Lopressor] 25 mg PO BID 04/15/21 04/15/21 Pantoprazole Sodium [Protonix] 40 mg PO DAILY 04/15/21 04/15/21 Rosuvastatin Calcium [Crestor] 40 mg PO HS 04/15/21 04/15/21 Ticagrelor [Brilinta] 90 mg PO BID 04/15/21 04/15/21 diphenhydrAMINE [Benadryl] 50 mg PO ONCE PRN 04/15/21 04/15/21 sitaGLIPtin [Januvia] 100 mg PO HS 04/15/21 04/15/21 Previous Rx's Medication Instructions Recorded Famotidine [Pepcid] 20 mg PO BID #60 tab 04/16/21 predniSONE 10 mg PO DIRECTED 6 Days #6 tab 04/16/21 EPINEPHrine (Auto Inject) [Epipen] 0.3 mg IM ONCE PRN #1 pen 04/19/21 Ciprofloxacin HCl [Cipro] 500 mg PO Q12HR #14 tablet 05/04/22 Allergies Allergy/AdvReac Type Severity Reaction Status Date / Time Iodinated Contrast Media Allergy Nausea & Verified 05/03/22 23:39 Vomiting Sulfa (Sulfonamide Allergy Rash/Hives Verified 05/03/22 23:39 Antibiotics) codeine AdvReac Nausea & Verified 05/03/22 23:39 Vomiting Review of Systems ROS Other: All systems not noted in ROS Statement are negative. <Gavi Delgado - Last Filed: 04/20/24 11:02> ROS Other: All systems not noted in ROS Statement are negative. <Orlando Franklin - Last Filed: 04/20/24 12:03> ROS Statement: Those systems with pertinent positive or pertinent negative responses have been documented in the HPI. Past Medical History Past Medical History: Diabetes Mellitus, Hypertension, Myocardial Infarction ([place]) Additional Past Medical History / Comment(s): pancreatitis, stent placed in pancreas then removed. Last Myocardial Infarction Date:: History of Any Multi-Drug Resistant Organisms: None Reported Past Surgical History: Section, Cholecystectomy, Heart Catheterization With Stent Additional Past Surgical History / Comment(s): Half of pancreas removed 03.23.21, CLINT placed on left side Past Anesthesia/Blood Transfusion Reactions: No Reported Reaction Past Psychological History: No Psychological Hx Reported Smoking Status: Never smoker Past Alcohol Use History: Occasional Past Drug Use History: None Reported <Gavi Delgado - Last Filed: 04/20/24 11:02> General Exam Limitations: no limitations <Gavi Delgado - Last Filed: 04/20/24 11:02> <Orlando Franklin - Last Filed: 04/20/24 12:03> - General Exam Comments Initial Comments: Visual Physical Exam Vital signs reviewed General: Well-appearing, nontoxic, no acute distress. Head: Normocephalic, atraumatic Eyes: PERRLA, EOMI ENT: Airway patent Chest: Nonlabored breathing Skin: No visual rash, normal skin tone Neuro: Alert and oriented 3 Musculoskeletal: No gross abnormalities (Gavi Delgado) GENERAL: Patient is well-developed and well-nourished. Patient is nontoxic and well- hydrated and is in mild distress. ENT: Neck is soft and supple. No significant lymphadenopathy is noted. Oropharynx is clear. Moist mucous membranes. Neck has full range of motion without eliciting any pain. EYES: The sclera were anicteric and conjunctiva were pink and moist. Extraocular movements were intact and pupils were equal round and reactive to light. Eyelids were unremarkable. PULMONARY: Unlabored respirations. Good breath sounds bilaterally. No audible rales rhonchi or wheezing was noted. CARDIOVASCULAR: There is a regular rate and rhythm without any murmurs gallops or rubs. ABDOMEN: Soft and nontender with normal bowel sounds. SKIN: Skin is clear with no lesions or rashes and otherwise unremarkable. NEUROLOGIC: Patient is alert and oriented x3. Cranial nerves II through XII are grossly intact. Motor and sensory are also intact. Normal speech, volume and content. Symmetrical smile. MUSCULOSKELETAL: Normal extremities with adequate strength and full range of motion. LYMPHATICS: No significant lymphadenopathy is noted PSYCHIATRIC: Normal psychiatric evaluation. (Orlando Franklin) Course Vital Signs 04/20/24 04/20/24 10:24 11:50 Temperature 97.7 F Pulse Rate 80 75 Respiratory 20 18 Rate Blood Pressure 151/97 O2 Sat by Pulse 97 97 Oximetry Chest Pain MDM <Gavi Delgado - Last Filed: 04/20/24 11:02> <Orlando Franklin - Last Filed: 04/20/24 12:03> - MDM I performed the QuickNote portion of this chart. Signed Gavi Delgado PA-C. (Gavi Delgado) Was pt. sent in by a medical professional or institution (MARGIE Menjivar, [employer], urgent care, hospital, or [place] [facility] facility...) When possible be specific @ -No Did you speak to anyone other than the patient for history (EMS, parent, family, police, friend...)? What history was obtained from this source @ -No Did you review nursing and triage notes (agree or disagree)? Why? @ -I reviewed and agree with nursing and triage notes Were old charts reviewed (outside hosp., previous admission, EMS record, old EKG, old radiological studies, urgent care reports/EKG's, [place] [facility] facility records)? Report findings @ -No old charts were reviewed Differential Diagnosis? @ -Differential Chest Pain: Stable Angina, Unstable Angina, STEMI, NSTEMI Aortic Dissection, Pneumothorax, Musculoskeletal, Esophageal Spasm GERD, Cholecystitis, Pancreatitis, Zoster, this is not meant to be an all-inclusive list. EKG interpreted by me (3pts min.). @ -As above X-rays interpreted by me (1pt min.). @ -Chest x-ray shows no acute normality CT interpreted by me (1pt min.). @ -None done U/S interpreted by me (1pt. min.). @ -None done What testing was considered but not performed or refused? (CT, X-rays, U/S, labs)? Why? @ -None What meds were considered but not given or refused? Why? @ -None Did you discuss the management of the patient with other professionals (professionals i.e. , PA, [employer], lab, RT, psych nurse, clinical social worker, cardiology tech, teacher, deputy probation officer, casework manager)? Give summary @ -I spoke with sound physicians they agreed to admit the patient I admitted the patient Was smoking cessation discussed for >3mins.? @ -No Was critical care preformed (if so, how long)? @ -35 minutes Were there social determinants of health that impacted care today? How? (Homelessness, low income, unemployed, alcoholism, drug addiction, transportation, low edu. Level, literacy, decrease access to med. care, penitentiary, rehab)? @ -No Was there de-escalation of care discussed even if they declined (Discuss DNR or withdrawal of care, Hospice)? DNR status @ -No What co-morbidities impacted this encounter? (DM, HTN, Smoking, COPD, CAD, Cancer, CVA, ARF, Chemo, Hep., AIDS, mental health diagnosis, sleep apnea, morbid obesity)? @ -None Was patient admitted / discharged? Hospital course, mention meds given and route, prescriptions, significant lab abnormalities, going to OR and other pertinent info. @ -Patient came in with chest pain similar to the chest pain she had with her previous DC. Patient denies any fever chills or cough. Patient denies any back pain. Patient denies any numbness or weakness. Patient was given Nitropaste and aspirin in the emergency department. Patient was started on heparin. Undiagnosed new problem with uncertain prognosis? @ -No Drug Therapy requiring intensive monitoring for toxicity (Heparin, Nitro, Insulin, Cardizem)? @ -No Were any procedures done? @ -No Diagnosis/symptom? @ -Unstable angina Acute, or Chronic, or Acute on Chronic? @ -Acute Uncomplicated (without systemic symptoms) or Complicated (systemic symptoms)? @ -Complicated Side effects of treatment? @ -No Exacerbation, Progression, or Severe Exacerbation? @ -No Poses a threat to life or bodily function? How? (Chest pain, [place], DC, pneumonia, PE, COPD, DKA, ARF, appy, cholecystitis, CVA, Diverticulitis, Homicidal, Suicidal, threat to staff... and all critical care pts) @ -Yes this could lead to an DC and endorgan dysfunction Patient had a repeat EKG because she was experiencing more pain after nitroglycerin. EKG was interpreted by myself but EKG shows a sinus rhythm at 60 bpm parable 136 QRS is 82 QT interval 371 QTc is 389. Patient's EKG shows no ST segment elevation or depression (Orlando Franklin) Disposition <Gavi Delgado - Last Filed: 04/20/24 11:02> Time of Disposition: 11:47 <Orlando Franklin - Last Filed: 04/20/24 12:03> Clinical Impression: Unstable angina Disposition: ADMITTED IP TO THIS HOSP Referrals: Andrews Tomlinson DO [Primary Care Provider] - 1-2 days
[2024-04-20 11:21] LABS: ALT 13 U/L (4-34); AST 16 U/L (14-36); African American GFR (CKD) >90 (>60 ml/min/1.73 sqM); Albumin 4.1 g/dL (3.5-5.0); Alkaline Phosphatase 115 U/L (38-126); Anion Gap 8 mmol/L; Blood Urea Nitrogen 10 mg/dL (7-17); Carbon Dioxide 26 mmol/L (22-30); Chloride 107 mmol/L (98-107); Glucose 181 mg/dL (74-99); Magnesium 2.1 mg/dL (1.6-2.3); Non-African American GFR(CKD) 82 (>60 ml/min/1.73 sqM); Potassium 4.4 mmol/L (3.5-5.1); Sodium 141 mmol/L (137-145); Total Bilirubin 0.8 mg/dL (0.2-1.3); Total Protein 7.1 g/dL (6.3-8.2)
[2024-04-20] MEDS: NITROGLYCERIN SL TABS 0.4 MG TAB SUBLINGUAL STA (11:51)
[2024-04-20] MEDS: ASPIRIN 81 MG PO STA (11:52)
[2024-04-20] MEDS: NITROGLYCERIN OINT 1 INCH/GM PACKET TOPICAL STA (12:02)
[2024-04-20] MEDS: NITROGLYCERIN OINT 1 INCH/GM PACKET TOPICAL SCH (12:05)
[2024-04-20] MEDS: HEPARIN SODIUM 1,000 UN/ML (10ML VL) IV ONE ×2 (12:07→18:16)
--- NOTE | 2024-04-20 12:08 | XR ---
EXAMINATION TYPE: XR chest 2V DATE OF EXAM: 04/20/2024 11:28 AM CLINICAL INDICATION:Female, 63 years old with history of Chest Pain; [facility] COMPARISON: Chest radiographs from 05/04/2022 TECHNIQUE: XR chest 2V Frontal view of the chest. FINDINGS: Lungs/Pleura: There is no evidence of pleural effusion, focal consolidation, or pneumothorax. Pulmonary vascularity: Unremarkable. Heart/mediastinum: Cardiomediastinal silhouette is unremarkable. Musculoskeletal: No acute osseous pathology. IMPRESSION: No acute cardiopulmonary disease/process.
[2024-04-20] MEDS: HEPARIN SOD,PORK IN 0.45% NACL 25,000 UNIT in 0.45% NACL 1 250ML.BAG IV SCH (12:09)
[2024-04-20] MEDS ORDERED: ONDANSETRON 4 MG/2 ML VIAL IVP PRN (13:55)
[2024-04-20] MEDS ORDERED: ALBUTEROL HFA INHALER INHALATION PRN (13:55)
--- NOTE | 2024-04-20 14:01 | P.HPIM ---
History of Present Illness H&P Date: 04/20/24 Patient is a 63-year-old female with history of CAD status post stent, insulin- dependent diabetes on insulin pump, hypertension, dyslipidemia, GERD, former smoker presenting with acute chest pain. She claims that she was having some diaphoresis yesterday. However, this morning at 7 AM she woke up with severe chest pain, left jaw pain and left ear pain. She denies any associated diapho resis, nausea, vomiting, palpitations, shortness of breath. She denies any recent travel history, lower extremity swelling. She denies any urinary or bowel complaints. She is a former smoker, but does vape. Occasional marijuana use, occasional alcohol use. In the ED, temperature was 97.7, pulse 80, respiratory rate 20, blood pressure 151/97, saturating at 97% on room air. WBC 6.3, hemoglobin 13.3, platelet 225, INR 0.9, APTT 24.3, potassium 4.4, creatinine 0.78, magnesium 2.1, negative tro ponin. Chest x-ray independently interpreted, shows no obvious opacity. EKG not available for interpretation, reportedly shows normal sinus rhythm without significant ST-T wave changes. Patient given aspirin 325 daily, started on heparin drip, nitroglycerin topical. Patient admitted for unstable angina. Cardiology consulted. Pertinent positives and negatives as discussed in HPI, a complete review of systems was performed and all other systems are negative. Patient seen and examined at bedside. Vital signs reviewed General: nontoxic, no distress, appears at stated age, obese Derm: warm, dry Head: atraumatic, normocephalic, symmetric Eyes: EOMI, no lid lag, anicteric sclera, pupils equal round reactive to light ENT: Nose and ears atraumatic Neck: No thyromegaly, supple Mouth: no lip lesion, mucus membranes moist Cardiovascular: S1S2 reg, no murmur, no edema Lungs: clear to auscultation bilateral, no rhonchi, no rales, no wheeze, no accessory muscle use Abdominal: soft, nontender to palpation, no guarding, no appreciable organomegaly Ext: no gross muscle atrophy, muscle strength muscle strength 5 out of 5 in all 4 extremities, no contractures Neuro: CN II-XII grossly intact Psych: Alert, oriented, appropriate affect Assessment/Plan: Unstable angina History of CAD status post stent Hypertension Dyslipidemia -Continue aspirin 81 mg, rosuvastatin 40 mg -Continue heparin drip, monitor APTT, monitor for any bleeding -Okay to continue nitroglycerin topical 1 inch every 6 hours -Continue metoprolol 25 twice daily -Cardiology consulted -Continue telemetry monitoring -Repeat troponin GERD -Continue lansoprazole 30 mg daily, famotidine 20 twice daily Type 2 diabetes -Continue insulin pump -ACHS blood glucose monitoring, monitor for hypoglycemia The patient is admitted with an anticipated greater than 2 midnight stay as inpatient status for evaluation of unstable angina. Surrogate decision-maker: CODE STATUS: Full code DVT prophylaxis: Heparin drip Anticipated discharge date: Pending clinical course Anticipated discharge place: Pending clinical course A total of 55 minutes was spent on the care of this complex patient more than 50% of the time was spent in counseling and care coordination. Past Medical History Past Medical History: Diabetes Mellitus, Hypertension, Myocardial Infarction ([place]) Additional Past Medical History / Comment(s): pancreatitis, stent placed in pancreas then removed. Last Myocardial Infarction Date:: History of Any Multi-Drug Resistant Organisms: None Reported Past Surgical History: Section, Cholecystectomy, Heart Catheterization With Stent Additional Past Surgical History / Comment(s): Half of pancreas removed 03.23.21, CLINT placed on left side Past Anesthesia/Blood Transfusion Reactions: No Reported Reaction Past Psychological History: No Psychological Hx Reported Smoking Status: Never smoker Past Alcohol Use History: Occasional Past Drug Use History: None Reported Medications and Allergies Home Medications Medication Instructions Recorded Confirmed Type Aspirin EC [Ecotrin Low Dose] 81 mg PO DAILY 04/15/21 04/20/24 History Docusate [Colace] 100 mg PO DAILY 04/15/21 04/20/24 History Metoprolol Tartrate [Lopressor] 25 mg PO BID 04/15/21 04/20/24 History Rosuvastatin Calcium [Crestor] 40 mg PO HS 04/15/21 04/20/24 History Famotidine [Pepcid] 20 mg PO BID #60 tab 04/16/21 04/20/24 Rx Albuterol Inhaler [Ventolin Hfa 1 - 2 puff INHALATION RT-Q6H PRN 04/20/24 04/20/24 History Inhaler] Ascorbic Acid [Vitamin C] 1,000 mg PO DAILY 04/20/24 04/20/24 History Insulin Aspart (For Pump) [NovoLOG 0.01 unit SQ-PUMP CONTINUOUS 04/20/24 04/20/24 History (For Pump)] Lansoprazole 30 mg PO DAILY 04/20/24 04/20/24 History Semaglutide [Ozempic] 1 mg SQ SA 04/20/24 04/20/24 History Vitamin E (Dl,Tocopheryl Acet) 400 unit PO DAILY 04/20/24 04/20/24 History [Vitamin E (400 Iu = 180 mg)] Allergies Allergy/AdvReac Type Severity Reaction Status Date / Time Sulfa (Sulfonamide Allergy Rash/Hives Verified 04/20/24 12:38 Antibiotics) codeine AdvReac Nausea & Verified 04/20/24 12:38 Vomiting Iodinated Contrast Media AdvReac Nausea & Verified 04/20/24 12:38 Vomiting Physical Exam Vitals: Vital Signs Temp Pulse Resp BP Pulse Ox 04/20/24 13:06 75 18 145/98 96 04/20/24 12:50 73 16 144/75 94 L 04/20/24 12:00 75 20 152/82 96 04/20/24 11:50 75 18 97 04/20/24 10:24 97.7 F 80 20 151/97 97 Intake and Output 04/19/24 04/20/24 04/20/24 22:59 06:59 14:59 Other: Weight 90.718 kg Results CBC & Chem 7: 04/20/24 10:29 04/20/24 10:29 Labs: Abnormal Lab Results - Last 24 Hours (Table) 04/20/24 04/20/24 Range/Units 10:29 10:29 PT 9.8 L (10.0-12.5) sec Glucose 181 H (74-99) mg/dL
[2024-04-20] MEDS: NITROGLYCERIN SL TABS 0.4 MG TAB SUBLINGUAL PRN (14:28)
--- NOTE | 2024-04-20 16:05 | P.CRDCN ---
History of Present Illness Consult date: 04/20/24 History of present illness: HISTORY OF PRESENTING ILLNESS 63-year-old female with past medical history of CAD s/p PCI to RCA in 2020 in [place]. This was done on emergent basis and seems to be STEMI by patient's description. Patient also has history of type 2 diabetes currently on insulin and Ozempic. Also history of hypertension dyslipidemia GERD former smoker cur rently vaping tobacco. This time she presented to the hospital because of substernal chest pain along with some diaphoresis which woke her up from sleep this morning. She reports that her pain is radiating to left jaw and left ear. She reports that her pain is similar in nature to when she had a heart attack in 2020. She received sublingual nitroglycerin and her symptoms got better. Patient complained of similar chest pain this afternoon, and her symptoms got better after sublingual nitroglycerin. She reports that she has been compliant to her cardiac medications including aspirin, cholesterol medication and metoprolol. Admission labs shows hemoglobin 13.3, platelets 225, INR 0.9, creatinine 0.7. Her troponin x 2 were negative, Her ECG showed normal sinus rhythm with no significant ST or T wave changes at rest concerning of ischemia REVIEW OF SYSTEMS 14 point review of system is negative except what is mentioned above in HPI. PHYSICAL EXAMINATION Vital signs reviewed. Head: Normocephalic. Eyes: Sclerae nonicteric. Neck: Brisk carotid upstroke, no jugular venous distention. Lungs: Clear to auscultation. Heart: Regular rate and rhythm, S1-S2, no S3, no murmur or rub. Abdomen: Soft nontender, positive bowel sounds. Extremities: No edema, intact distal pulses. Neuro: Alert, oritented, no focal deficits. Detailed neuro exam was not performed. ASSESSMENT Substernal chest pain, relieved with nitroglycerin. Unstable angina History of CAD s/p PCI to RCA in 2020 Hypertension Dyslipidemia Type 2 diabetes on insulin Obesity Tobacco vaping PLAN Aspirin, atorvastatin 80 mg, IV heparin drip Metoprolol 25 mg twice daily Start Imdur 30 mg daily Obtain echo Due to ongoing substernal chest pain relieved with nitroglycerin and patient describing her symptoms to be similar to what she had during her heart attack, I will plan for heart catheterization procedure. Tanmay Martínez MD, FACC, RPVI Thank you for allowing [facility] to participate in this patient's care. Feel free to reach out in case of any followup questions. Past Medical History Past Medical History: Diabetes Mellitus, Hypertension, Myocardial Infarction ([place]) Additional Past Medical History / Comment(s): pancreatitis, stent placed in pancreas then removed. Last Myocardial Infarction Date:: History of Any Multi-Drug Resistant Organisms: None Reported Past Surgical History: Section, Cholecystectomy, Heart Catheterization With Stent Additional Past Surgical History / Comment(s): Half of pancreas removed 03.23.21, CLINT placed on left side Past Anesthesia/Blood Transfusion Reactions: No Reported Reaction Date of Last Stent Placement:: 2019 Past Psychological History: No Psychological Hx Reported Smoking Status: Never smoker Past Alcohol Use History: Occasional Past Drug Use History: None Reported Medications and Allergies Home Medications Medication Instructions Recorded Confirmed Type Aspirin EC [Ecotrin Low Dose] 81 mg PO DAILY 04/15/21 04/20/24 History Docusate [Colace] 100 mg PO DAILY 04/15/21 04/20/24 History Metoprolol Tartrate [Lopressor] 25 mg PO BID 04/15/21 04/20/24 History Rosuvastatin Calcium [Crestor] 40 mg PO HS 04/15/21 04/20/24 History Famotidine [Pepcid] 20 mg PO BID #60 tab 04/16/21 04/20/24 Rx Albuterol Inhaler [Ventolin Hfa 1 - 2 puff INHALATION RT-Q6H PRN 04/20/24 04/20/24 History Inhaler] Ascorbic Acid [Vitamin C] 1,000 mg PO DAILY 04/20/24 04/20/24 History Insulin Aspart (For Pump) [NovoLOG 0.01 unit SQ-PUMP CONTINUOUS 04/20/24 04/20/24 History (For Pump)] Lansoprazole 30 mg PO DAILY 04/20/24 04/20/24 History Semaglutide [Ozempic] 1 mg SQ SA 04/20/24 04/20/24 History Vitamin E (Dl,Tocopheryl Acet) 400 unit PO DAILY 04/20/24 04/20/24 History [Vitamin E (400 Iu = 180 mg)] Allergies Allergy/AdvReac Type Severity Reaction Status Date / Time Sulfa (Sulfonamide Allergy Rash/Hives Verified 04/20/24 12:38 Antibiotics) codeine AdvReac Nausea & Verified 04/20/24 12:38 Vomiting Iodinated Contrast Media AdvReac Nausea & Verified 04/20/24 12:38 Vomiting Physical Exam Vitals: Vital Signs Temp Pulse Pulse Resp BP BP Pulse Ox 04/20/24 14:23 136/67 04/20/24 14:11 98.0 F 70 18 119/60 96 04/20/24 13:06 75 18 145/98 96 04/20/24 12:50 73 16 144/75 94 L 04/20/24 12:00 75 20 152/82 96 04/20/24 11:50 75 18 97 04/20/24 10:24 97.7 F 80 20 151/97 97 Intake and Output 04/20/24 04/20/24 04/20/24 06:59 14:59 22:59 Other: Weight 90.718 kg Results 04/20/24 10:29 04/20/24 10:29 Cardiac Enzymes 04/20/24 04/20/24 04/20/24 Range/Units 10:29 10:29 12:33 AST 16 (14-36) U/L Troponin I <0.012 <0.012 (0.000-0.034) ng/mL 04/20/24 Range/Units 15:08 AST (14-36) U/L Troponin I <0.012 (0.000-0.034) ng/mL Coagulation 04/20/24 Range/Units 10:29 PT 9.8 L (10.0-12.5) sec APTT 24.3 (22.0-30.0) sec CBC 04/20/24 Range/Units 10:29 WBC 6.3 (3.8-10.6) k/uL RBC 4.95 (3.80-5.40) m/uL Hgb 13.2 (11.4-16.0) gm/dL Hct 41.0 (34.0-46.0) % Plt Count 225 (150-450) k/uL Comprehensive Metabolic Panel 04/20/24 Range/Units 10:29 Sodium 141 (137-145) mmol/L Potassium 4.4 (3.5-5.1) mmol/L Chloride 107 (98-107) mmol/L Carbon Dioxide 26 (22-30) mmol/L BUN 10 (7-17) mg/dL Creatinine 0.78 (0.52-1.04) mg/dL Glucose 181 H (74-99) mg/dL Calcium 10.0 (8.4-10.2) mg/dL AST 16 (14-36) U/L ALT 13 (4-34) U/L Alkaline Phosphatase 115 (38-126) U/L Total Protein 7.1 (6.3-8.2) g/dL Albumin 4.1 (3.5-5.0) g/dL Current Medications Generic Name Dose Route Start Last Admin Trade Name Freq PRN Reason Stop Dose Admin Albuterol Sulfate 1 - 2 puff 04/20/24 13:55 Albuterol Hfa Inhaler INHALATION RT-Q6H PRN Shortness Of Breath Aspirin 81 mg 04/21/24 09:00 Aspirin 81 Mg PO DAILY KEARA Atorvastatin Calcium 80 mg 04/20/24 21:00 Atorvastatin 80 Mg Tab PO HS KEARA Docusate Sodium 100 mg 04/21/24 09:00 Docusate 100 Mg Cap PO DAILY [facility] Famotidine 20 mg 04/20/24 21:00 Famotidine 20 Mg Tab PO BID [facility] Heparin Sodium/Sodium Chloride 250 mls @ 9.979 mls/hr 04/20/24 11:45 04/20/24 12:09 25,000 unit/ Sodium Chloride IV 11 units/kg/hr .Q24H KEARA 9.979 mls/hr Administration Protocol 11 UNITS/KG/HR Insulin Aspart 0.01 unit 04/20/24 14:00 Insulin Aspart (For Pump) 100 Unit/Ml Vial SQ-PUMP CONTINUOUS [facility] Metoprolol Tartrate 25 mg 04/20/24 21:00 Metoprolol Tartrate 25 Mg Tab PO BID [facility] Nitroglycerin 0.4 mg 04/20/24 11:47 04/20/24 14:28 Nitroglycerin Sl Tabs 0.4 Mg Tab SUBLINGUAL 0.4 mg Q5M PRN Administration Chest Pain Nitroglycerin 1 inch 04/20/24 12:00 04/20/24 12:05 Nitroglycerin Oint 1 Inch/Gm Packet TOPICAL Not Given Q6HR [facility] Ondansetron HCl 4 mg 04/20/24 13:55 Ondansetron 4 Mg/2 Ml Vial IVP Q6HR PRN Nausea And Vomiting Pantoprazole Sodium 40 mg 04/21/24 09:00 Pantoprazole 40 Mg Tablet PO DAILY KEARA Intake and Output 04/20/24 04/20/24 04/20/24 06:59 14:59 22:59 Other: Weight 90.718 kg Patient Weight 04/21/24 06:59 Weight 90.718 kg 04/20/24 10:29 04/20/24 10:29
[2024-04-20 16:52] LABS: Glucose,Whole Blood 109 mg/dL (70-110)
[2024-04-20] MEDS: Insulin Aspart (For Pump) 100 UNIT/ML VIAL SQ-PUMP SCH (16:54)
[2024-04-20] MEDS: ATORVASTATIN 80 MG TAB PO SCH (16:55)
[2024-04-20] MEDS: SODIUM CHLORIDE 0.9% 1,000 ML in EMPTY BAG 1 BAG IV SCH (16:56)
[2024-04-20] MEDS ORDERED: VERAPAMIL 2.5 MG/ML 2 ML AMP ONE (17:50)
[2024-04-20] MEDS ORDERED: LIDOCAINE 1% INJ 10MG/ML (20 ML MDV) ONE (17:50)
[2024-04-20] MEDS: IV FLUID CONTINUATION 1,000 ML IV ONE (18:04)
[2024-04-20] MEDS ORDERED: fentaNYL (PF) 50 MCG/ML 2 ML AMP ONE (18:07)
[2024-04-20] MEDS: MIDAZOLAM 2 MG/2 ML VIAL IVP ONE (18:07)
[2024-04-20] MEDS: fentaNYL (PF) 50 MCG/ML 2 ML AMP IVP ONE (18:07)
[2024-04-20] MEDS: LIDOCAINE 1% INJ 10MG/ML (20 ML MDV) SQ ONE (18:08)
[2024-04-20] MEDS: VERAPAMIL SYRINGE (5 MG/10 ML) INTRAARTER ONE (18:09)
[2024-04-20] MEDS: IOPAMIDOL-370 100ML BTL INJ ONE (18:27)
[2024-04-20] MEDS ORDERED: RX INFO: IV CONTRAST WAS GIVEN 1 EACH MISC MISCELLANE PRN (18:28)
--- NOTE | 2024-04-20 18:32 | P.CARDCATH ---
Date of Procedure: 04/20/24 Description of Procedure: DIAGNOSTIC CORONARY ANGIOGRAPHY and LEFT HEART CATH REPORT PROCEDURES PERFORMED: Left heart catheterization Selective coronary angiography Moderate conscious sedation 12 mins [Ultrasound assisted] Right radial access INDICATION: [Unstable angina] 63-year-old with past medical history of CAD s/p PCI to LCx in 2019 for a inferior wall STEMI. This was done in [place]. Patient was then present to the hospital because of substernal chest pain radiating to her left ear woke her up from sleep this morning. Patient does vape CONSENT: I have explained the procedural steps of above-mentioned procedures in layman's terms to the patient. I discussed the risks (including but not limited to stroke, emergent vascular or cardiac surgery or ), benefits and alternative therapies for the above-mentioned procedure. I discussed the risks of sedation/analgesia and blood product administration (if indicated). The patient has indicated understanding and acceptance of these risks. Conscious Sedation: Patient's ECG, heart rate, blood pressure, pulse oximetry were monitored throughout the duration of procedure under my direct supervision. [2] mg Versed and [50] mcg Fentanyl were used for induction of moderate conscious sedation. Total duration of moderate concious sedation [25] minutes. PROCEDURE: After explaining the risks, benefits and alternatives of the above mentioned procedures in detail to the patient, informed consent was obtained. Patient was taken to the catheterization lab, prepped and draped in usual sterile fashion using universal precuations. Ultrasound was used to identify the radial artery. 1% lidocaine was infiltrated over the right radial artery. A 6-Ukrainian sheath was placed and secured in the right radial artery using modified Seldinger technique. The sheath was flushed and 5 mg verapamil was administered intra-arterially. J tipped wire was advanced under fluoroscopic guidance. Once the wire tip reached aortic root [5000] units of IV heparin was given. Over the wire JR4 diagnostic catheter was advanced. The wire in place the cat heter was manipulated to cross the aortic valve and entered into LV under fluoroscopy guidance. The wire was removed and the catheter was flushed. LV pressures were obtained and pullback was performed under fluoroscopy. Catheter was manipulated to selectively engage the right coronary ostium. Right coronary angiography was performed in different angiographic projections. The JR4 diagnostic catheter was exchanged for a JL 3.5 diagnostic catheter over the J-wire. The wire was removed, catheter was flushed and manipulated under fluoroscopy to selectively engaged the left coronary ostium. Left coronary angioplasty was performed in different angiographic projections. Catheter was removed over the wire. Radial sheath was flushed. The right radial sheath was removed and a TR band was placed with excellent patent hemostasis was achieved. The patient tolerated the procedure well. Patient was transported back to the post catheterization holding area in stable condition. Angiographic images were reviewed in detail. Technical details Estimated blood loss less than 15 mL Total fluoroscopy time 2.6 minutes Total radiation to 35 mGy Catheters used JL 3.5, JR4 Complications none HEMODYNAMICS: Aortic Pressure: 137/78 mmHg. LV pressure: 138/12 mmHg. LVEDP 16 mmHg. There was no significant gradient across the aortic valve. SELECTIVE CORONARY ARTERIOGRAPHY: LEFT MAIN: The left main is short and large caliber vessel. It bifurcates into the LAD and circumflex. Left main appears angiographically normal. LEFT ANTERIOR DESCENDING CORONARY ARTERY: LAD is a large caliber vessel which wraps around to the apex. Proximal LAD appears angiographically normal. Mid LAD appears angiographically normal. Distal LAD appears angiographically normal. It gives rise to a diagonal branch which appears angiographically normal LEFT CIRCUMFLEX CORONARY ARTERY: Dominant vessel. Proximal LCx has a prior stent which appears patent. Distal end of the stent has mild disease just prior to giving the OM branch. Mid LCx has mild luminal irregularities. It gives rise to multiple OM branches appears angiographically normal RIGHT CORONARY ARTERY: Nondominant, small caliber. Appears angiographically normal IMPRESSION: Mild nonobstructive CAD Patent stent in proximal LCx Normal left sided filling pressures PLAN: Continue aspirin 81 mg, Lipitor 40 mg, metoprolol 25 mg twice daily. Add Imdur 30 mg daily Stop smoking and vaping. [place] quit line information was provided 125 cc fluids for 4 hours Follow-up in the office in 1-2 weeks. Performing Physician Tanmay Martínez MD, FACC, RPVI Thank you for allowing [facility] to participate in this patient's care. Feel free to reach out in case of any followup questions.
[2024-04-20 19:00] LABS: NT-Pro-B-Type Natriuretic Pept <20 pg/mL
[2024-04-20] MEDS: METOPROLOL TARTRATE 25 MG TAB PO SCH (20:10)
[2024-04-20] MEDS: FAMOTIDINE 20 MG TAB PO SCH (20:11)
[2024-04-20] MEDS: SODIUM CHLORIDE 0.9% 1,000 ML IV SCH (20:11)
[2024-04-20 20:16] LABS: Glucose,Whole Blood 171 mg/dL (70-110)
[2024-04-20] MEDS: CALCIUM CARBONATE 500 MG CHEWABLE PO PRN (21:03)
[2024-04-20] MEDS: ACETAMINOPHEN TAB 325 MG TAB PO PRN (21:03)
[2024-04-20] MEDS: ALPRAZolam 0.25 MG TAB PO PRN (23:17)
[2024-04-21 03:10] VITALS: PULSE 83
[2024-04-21 06:05] LABS: Glucose,Whole Blood 141 mg/dL (70-110)
[2024-04-21] MEDS ORDERED: HEPARIN SODIUM,PORCINE 10,000 UNIT in SODIUM CHLORIDE 0.9% 1,000 ML IRRIGATION PRN (07:00)
[2024-04-21] MEDS ORDERED: HEPARIN SODIUM,PORCINE (1 ML) 2,500 UNIT in SODIUM CHLORIDE 0.9% 250 ML IRRIGATION PRN (07:00)
[2024-04-21 07:10] LABS: Basophils % (A) 1 %; Eosinophils # (A) 0.2 k/uL (0-0.7); Eosinophils % (A) 2 %; HCT 37.9 % (34.0-46.0); HGB 12.1 gm/dL (11.4-16.0); Lymphocytes # (A) 1.2 k/uL (1.0-4.8); Lymphocytes % (A) 15 %; MCH 26.3 pg (25.0-35.0); MCHC 31.9 g/dL (31.0-37.0); MCV 82.6 fL (80.0-100.0); Monocytes # (A) 0.5 k/uL (0-1.0); Monocytes % (A) 6 %; Neutrophils % (A) 75 %; Platelet Count 218 k/uL (150-450); RBC 4.59 m/uL (3.80-5.40); RDW 15.5 % (11.5-15.5)
[2024-04-21 07:23] LABS: African American GFR (CKD) >90 (>60 ml/min/1.73 sqM); Anion Gap 6 mmol/L; Blood Urea Nitrogen 8 mg/dL (7-17); Calcium 9.7 mg/dL (8.4-10.2); Carbon Dioxide 24 mmol/L (22-30); Chloride 109 mmol/L (98-107); Glucose 134 mg/dL (74-99); Magnesium 1.9 mg/dL (1.6-2.3); Non-African American GFR(CKD) >90 (>60 ml/min/1.73 sqM); Potassium 3.8 mmol/L (3.5-5.1); Sodium 139 mmol/L (137-145)
[2024-04-21] MEDS: DOCUSATE 100 MG CAP PO SCH (08:14)
[2024-04-21] MEDS: ASPIRIN 81 MG PO SCH (08:14)
[2024-04-21] MEDS: PANTOPRAZOLE 40 MG TABLET PO SCH (08:15)
--- NOTE | 2024-04-21 08:44 | CA ---
Transthoracic Echo Report Name: Mounika Kerns Age: 63 Gender: F : 1960 Exam Date: 04/20/2024 16:23 Exam Location: [place] [facility] Ht (in): 60 Wt (lb): 200 Ordering Physician: Tanmay Martínez MD ([id number]) Attending/Referring Phys: Capacity Planning Manager Macey Brown RDCS Procedure CPT: Indications: Chest Pain Cardiac Hx: Technical Quality: Fair Contrast 1: Definity Total Dose (mL): 2 Contrast 2: Total Dose (mL): MEASUREMENTS (Male / Female) Normal Values 2D ECHO LV Diastolic Diameter PLAX 4.8 cm 4.2 - 5.9 / 3.9 - 5.3 cm LV Systolic Diameter PLAX 3.3 cm IVS Diastolic Thickness 0.9 cm 0.6 - 1.0 / 0.6 - 0.9 cm LVPW Diastolic Thickness 0.9 cm 0.6 - 1.0 / 0.6 - 0.9 cm LV Relative Wall Thickness 0.4 LVOT Diameter 2.0 cm LV Diastolic Volume MOD BP 102.8 cm??? 67 - 155 / 56 - 104 cm??? LV Systolic Volume MOD BP 36.4 cm??? 22 - 58 / 19 - 49 cm??? LV Ejection Fraction MOD BP 64.6 % >= 55 % LV Cardiac Index MOD BP 2147.3 cm???/min???m??? LV Diastolic Volume MOD 4C 94.6 cm??? LV Systolic Volume MOD 4C 36.6 cm??? LV Ejection Fraction MOD 4C 61.3 % LV Cardiac Index MOD 4C 1877.0 cm???/min???m??? LV Diastolic Length 4C 8.1 cm LV Systolic Length 4C 6.9 cm LV Diastolic Volume MOD 2C 110.6 cm??? LV Systolic Volume MOD 2C 34.7 cm??? LV Ejection Fraction MOD 2C 68.6 % LV Cardiac Index MOD 2C 2452.7 cm???/min???m??? LV Diastolic Length 2C 8.2 cm LV Systolic Length 2C 6.6 cm LA Volume 53.2 cm??? 18 - 58 / 22 - 52 cm??? LA Volume Index 26.5 cm???/m??? 16 - 28 cm???/m??? Ascending Aorta Diameter 2.7 cm DOPPLER AV Peak Velocity 163.0 cm/s AV Peak Gradient 10.6 mmHg AV Mean Velocity 102.1 cm/s AV Mean Gradient 4.7 mmHg AV Velocity Time Integral 32.2 cm LVOT Peak Velocity 114.5 cm/s LVOT Peak Gradient 5.2 mmHg LVOT Velocity Time Integral 23.3 cm LVOT Stroke Volume 69.8 cm??? LVOT Stroke Volume Index 37.4 ml/m??? LVOT Cardiac Index 2255.9 cm???/min???m??? AV Area Cont Eq vti 2.2 cm??? AV Area Cont Eq pk 2.1 cm??? MV Area PHT 4.6 cm??? Mitral E Point Velocity 58.4 cm/s Mitral A Point Velocity 70.3 cm/s Mitral E to A Ratio 0.8 MV Deceleration Time 163.1 ms PV Peak Velocity 93.7 cm/s PV Peak Gradient 3.5 mmHg FINDINGS Left Ventricle Left ventricular ejection fraction is estimated at 60-65 %. Left ventricular cavity size normal. Left ventricular wall thickness normal. No obvious regional wall motion abnormalities. Right Ventricle Normal right ventricular size and function. Unable to estimate the right ventricular systolic pressure. Right Atrium Normal right atrial size. Left Atrium Mildly increased left atrial volume. Mitral Valve Structurally normal mitral valve. No evidence for mitral valve prolapse. No mitral stenosis. Trace mitral regurgitation. Aortic Valve Trileaflet aortic valve. No aortic valve stenosis or regurgitation. Tricuspid Valve Structurally normal tricuspid valve. No tricuspid stenosis. Trace tricuspid regurgitation. Pulmonic Valve Structurally normal pulmonic valve. No pulmonic stenosis. No pulmonic regurgitation. Pericardium No pericardial effusion. Aorta Normal size aortic root and proximal ascending aorta. CONCLUSIONS Left ventricular ejection fraction is estimated at 60-65 %. No obvious regional wall motion abnormalities. Normal right ventricular size and function. No significant valve dysfujnction Previewed by: Dr Tanmay Martínez (Electronically Signed) Final Date: 21 April 2024 08:43
[2024-04-21] MEDS ORDERED: ASPIRIN 325 MG TAB PO SCH (09:00)
[2024-04-21 10:30] VITALS: BP 145/75; RESP 16; TEMP 97.7
--- NOTE | 2024-04-21 11:06 | P.DS ---
Providers Date of admission: 04/20/24 11:47 Expected date of discharge: 04/21/24 Attending physician: Bi Bryson MD Consults: 04/20/24 11:47 Consult Physician Urgent Consulting Provider: [facility] Consult Reason/Comments: Unstable angina Do you want consulting provider notified?: Yes Primary care physician: [facility] Course: Discharge Diagnosis: Chest pain, initially suspected to be unstable angina History of CAD status post stent Hypertension Dyslipidemia GERD Type 2 diabetes Hospital Course: 63-year-old female with history of CAD status post stent, insulin-dependent diabetes on insulin pump, hypertension, dyslipidemia, GERD, former smoker presenting with acute chest pain. In the ED, temperature was 97.7, pulse 80, respiratory rate 20, blood pressure 151/97, saturating at 97% on room air. WBC 6.3, hemoglobin 13.3, platelet 225, INR 0.9, APTT 24.3, potassium 4.4, creatinine 0.78, magnesium 2.1, negative troponin. Chest x-ray independently interpreted, shows no obvious opacity. EKG not available for interpretation, reportedly shows normal sinus rhythm without significant ST-T wave changes. Patient given aspirin 325 daily, started on heparin drip, nitroglycerin topical. Patient admitted for suspected unstable angina. Cardiology consulted. Underwent cardiac cath that showed mild nonobstructive CAD, patent stent in proximal left circumflex, normal left-sided filling pressures. Echocardiogram showed LVEF 60 to 65%. Patient being discharged on home medications, also started on Imdur daily. Follow-up outpatient with cardiology and PCP. Patient seen and examined at bedside. Vital signs reviewed and stable. General: Nontoxic, no distress, appears at stated age Derm: Warm, dry Head: Atraumatic, normocephalic, symmetric Eyes: EOMI, no lid lag, anicteric sclera Mouth: No lip lesion, mucus membranes moist Cardiovascular: S1S2 reg, no murmur Lungs: CTA bilateral, no rhonchi, no rales, no accessory muscle use Abdominal: Soft, nontender to palpation, no guarding, no appreciable organomegaly Ext: No gross muscle atrophy, no edema, no contractures Neuro: CN II-XI grossly intact, no focal neuro deficits Psych: Alert, oriented, appropriate affect A total of 33 minutes of time were spent preparing this complex discharge summary. Patient was discharged on 04/21/2024 at 1103. Patient Condition at Discharge: Stable Plan - Discharge Summary Discharge Rx Participant: Yes New Discharge Prescriptions: New Isosorbide Mononitrate ER [Imdur] 30 mg PO DAILY #60 tab Continue Rosuvastatin Calcium [Crestor] 40 mg PO HS Docusate [Colace] 100 mg PO DAILY Aspirin EC [Ecotrin Low Dose] 81 mg PO DAILY Vitamin E (Dl,Tocopheryl Acet) [Vitamin E (400 Iu = 180 mg)] 400 unit PO DAILY Lansoprazole 30 mg PO DAILY Metoprolol Tartrate [Lopressor] 25 mg PO BID Famotidine [Pepcid] 20 mg PO BID #60 tab Semaglutide [Ozempic] 1 mg SQ SA Albuterol Inhaler [Ventolin Hfa Inhaler] 1 - 2 puff INHALATION RT-Q6H PRN PRN Reason: Shortness Of Breath Ascorbic Acid [Vitamin C] 1,000 mg PO DAILY Insulin Aspart (For Pump) [NovoLOG (For Pump)] 0.01 unit SQ-PUMP CONTINUOUS Discharge Medication List Aspirin EC [Ecotrin Low Dose] 81 mg PO DAILY 04/15/21 [History] Docusate [Colace] 100 mg PO DAILY 04/15/21 [History] Metoprolol Tartrate [Lopressor] 25 mg PO BID 04/15/21 [History] Rosuvastatin Calcium [Crestor] 40 mg PO HS 04/15/21 [History] Famotidine [Pepcid] 20 mg PO BID #60 tab 04/16/21 [Rx] Albuterol Inhaler [Ventolin Hfa Inhaler] 1 - 2 puff INHALATION RT-Q6H PRN 04/20/24 [History] Ascorbic Acid [Vitamin C] 1,000 mg PO DAILY 04/20/24 [History] Insulin Aspart (For Pump) [NovoLOG (For Pump)] 0.01 unit SQ-PUMP CONTINUOUS 04/20/24 [History] Lansoprazole 30 mg PO DAILY 04/20/24 [History] Semaglutide [Ozempic] 1 mg SQ SA 04/20/24 [History] Vitamin E (Dl,Tocopheryl Acet) [Vitamin E (400 Iu = 180 mg)] 400 unit PO DAILY 04/20/24 [History] Isosorbide Mononitrate ER [Imdur] 30 mg PO DAILY #60 tab 04/21/24 [Rx] Follow up Appointment(s)/Referral(s): Tanmay Martínez MD [Medical Doctor] - 1 Week (Patient to schedule appointment, ensure office is aware you had a heart catheterization while in hops[facility].) Andrews Tomlinson DO [Primary Care Provider] - 1-2 days (Office closed at time of discharge, ensure office is aware this is an appointment following a hopsital stay.) Patient Instructions/Handouts: Chest Pain (DC) Activity/Diet/Wound Care/Special Instructions: Please see your PCP and cardiology. Discharge Disposition: HOME SELF-CARE
[2024-04-21] MEDS: ISOSORBIDE MONONITRATE ER 30 MG TAB.ER.24H PO SCH (11:46)
--- NOTE | 2024-04-21 13:22 | P.PN ---
Subjective Progress Note Date: 04/21/24 HISTORY OF PRESENTING ILLNESS 63-year-old female with past medical history of CAD s/p PCI to RCA in 2019 in [place]. This was done on emergent basis and seems to be STEMI by patient's description. Patient also has history of type 2 diabetes currently on insulin and Ozempic. Also history of hypertension dyslipidemia GERD former smoker currently vaping tobacco. This time she presented to the hospital because of substernal chest pain along with some diaphoresis which woke her up from sleep this morning. She reports that her pain is radiating to left jaw and left ear. She reports that her pain is similar in nature to when she had a heart attack in 2020. She received sublingual nitroglycerin and her symptoms got better. Patient complained of similar chest pain this afternoon, and her symptoms got better after sublingual nitroglycerin. She reports that she has been compliant to her cardiac medications including aspirin, cholesterol medication and metoprolol. Admission labs shows hemoglobin 13.3, platelets 225, INR 0.9, creatinine 0.7. Her troponin x 2 were negative, Her ECG showed normal sinus rhythm with no significant ST or T wave changes at rest concerning of ischemia Progress note 04/21/2024 Patient is doing well from cardiovascular standpoint. She is hemodynamically stable. She denies having any further chest pain chest pressure symptoms. Right radial access site appears intact with no swelling hematoma and good radial pulse. No postop complications were encountered. No signs of stroke or any fluid overload. No concerns of any arrhythmias PHYSICAL EXAMINATION Vital signs reviewed. Head: Normocephalic. Eyes: Sclerae nonicteric. Neck: Brisk carotid upstroke, no jugular venous distention. Lungs: Clear to auscultation. Heart: Regular rate and rhythm, S1-S2, no S3, no murmur or rub. Abdomen: Soft nontender, positive bowel sounds. Extremities: No edema, intact distal pulses. Neuro: Alert, oritented, no focal deficits. Detailed neuro exam was not performed. ASSESSMENT Substernal chest pain, relieved with nitroglycerin. Unstable angina History of CAD s/p PCI to RCA in 2019 Hypertension Dyslipidemia Type 2 diabetes on insulin Obesity Tobacco vaping PLAN Aspirin, atorvastatin 80 mg, Metoprolol 25 mg twice daily Start Imdur 30 mg daily Patient is okay to be discharged from cardiovascular standpoint with outpatient follow-up with Dr. Martínez in cardiology clinic Objective - Vital Signs Vital signs: Vital Signs Temp 97.7 F 04/21/24 08:10 Pulse 83 04/21/24 08:10 Resp 16 04/21/24 08:10 BP 145/75 04/21/24 08:10 Pulse Ox 95 04/21/24 08:10 FiO2 Intake & Output 04/20/24 04/21/24 04/21/24 18:59 06:59 18:59 Intake Total 150 120 Output Total 0 Balance 150 0 120 Weight 90.718 kg 91.4 kg Intake: IV 150 Oral 120 Output: Urine 0 Other: Voiding Method Toilet Toilet # Voids 1 - Labs CBC & Chem 7: 04/21/24 06:46 04/21/24 06:46 Labs: Abnormal Lab Results - Last 24 Hours (Table) 04/20/24 04/20/24 04/21/24 Range/Units 10:29 20:15 06:04 Chloride (98-107) mmol/L Glucose (74-99) mg/dL POC Glucose (mg/dL) 171 H 141 H (70-110) mg/dL Hemoglobin A1c 7.3 H (<=6.0) % 04/21/24 Range/Units 06:46 Chloride 109 H (98-107) mmol/L Glucose 134 H (74-99) mg/dL POC Glucose (mg/dL) (70-110) mg/dL Hemoglobin A1c (<=6.0) %
[2024-04-24 06:00] LABS: Chol/HDL Ratio 3.15 Ratio; LDL Cholesterol,Calculated 58.1 mg/dL (0.0-131.0)
== END 2024-04-21 11:49 | disposition home or self-care (01) ==
LOC: EC 10:21 → INTOOBSV 11:47 → 3SCARD 11:47 → UNDODISIN 04-21 11:49
PROVIDERS: ADMIT Student in an Organized Health Care Education/Training Program; ATTEND Student in an Organized Health Care Education/Training Program
DX: R07.2 Precordial pain (principal); I25.10 Atherosclerotic heart disease of native coronary artery without angina pectoris; E11.9 Type 2 diabetes mellitus without complications; E78.00 Pure hypercholesterolemia, unspecified; I10 Essential (primary) hypertension; K21.9 Gastro-esophageal reflux disease without esophagitis; I25.2 Old myocardial infarction; F17.290 Nicotine dependence, other tobacco product, uncomplicated; E66.9 Obesity, unspecified; Z68.39 Body mass index [BMI] 39.0-39.9, adult; Z95.5 Presence of coronary angioplasty implant and graft; Z96.41 Presence of insulin pump (external) (internal); Z79.82 Long term (current) use of aspirin; Z79.899 Other long term (current) drug therapy; Z79.84 Long term (current) use of oral hypoglycemic drugs; Z79.02 Long term (current) use of antithrombotics/antiplatelets; Z79.4 Long term (current) use of insulin; Z79.85 Long-term (current) use of injectable non-insulin antidiabetic drugs; Z88.2 Allergy status to sulfonamides; Z88.5 Allergy status to narcotic agent
CPT/HCPCS: 96374; 99291; 36415; 93005; 93458; 83880; 80061; 80053; 80048; 84443; 83735 ×2; 84484; 85025 ×2; 85610; 85730; 83036; 71046; G0378 ×2; C8929; C1769 ×2; C1894; J2250; J2001; J3010; Q9957; J1644 ×2; Q9967; 93306